=== PATIENT | male | born 1940 | race Caucasian/White ===

== ENCOUNTER 2016-04-26 18:57 | Inpatient (IN) | payer MEDICARE, BC ==
[2016-04-26] MEDS ORDERED: HYDROmorphone 1 MG/ML Syringe IVPUSH ONE (19:57)
[2016-04-26] MEDS ORDERED: Ondansetron 4 MG/2 ML SDV IVPUSH ONE (19:57)
[2016-04-26] MEDS ORDERED: Sodium Chloride 0.9% 1,000 ML IV SCH ×2 (20:00→23:15)
[2016-04-26] MEDS ORDERED: Sodium Chloride 0.9% 10 ML Syringe FLUSH ONE (20:00)
[2016-04-26] MEDS ORDERED: Iopamidol 612 MG/ML 150 ML Bottle IV PRN (20:00)
[2016-04-26] MEDS ORDERED: HYDROmorphone 0.5 MG/0.5 ML Syringe IVPUSH ONE (22:05)
[2016-04-26] MEDS ORDERED: Lidocaine 2% Jelly 10 ML Urojet ONE (22:14)
[2016-04-26] MEDS ORDERED: Albuterol 0.083% 2.5 MG/3 ML Neb Soln NEB PRN (23:01)
[2016-04-26] MEDS ORDERED: Morphine 2 MG/ML Syringe IVPUSH PRN (23:01)
--- NOTE | 2016-04-26 23:02 | EDM.PDOC ---
ED HPI GI/ABDOMINAL - General Chief Complaint: Abdominal Pain Stated Complaint: ABDOMINAL PAIN Time Seen by Provider: 04/26/16 19:50 Source: Reports: Patient History Limitations: Reports: No limitations - History of Present Illness INITIAL COMMENTS - FREE TEXT/NARRATIVE: History of present illness: [68-year-old male presents complaining of a bowel obstruction. He has history of gastric bypass several years ago and has had about 3 or 4 episodes of small bowel obstruction since then. Twice he's been taken to the operating room for a resection of a portion of his small bowel. He's had no fevers he's had bilious vomiting this all started about 3:00.] Review of systems: As per history of present illness and below otherwise all systems reviewed and negative. Past medical history: As per history of present illness and as reviewed below otherwise noncontributory. Surgical history: As per history of present illness and as reviewed below otherwise noncontributory. Social history: No reported history of drug or alcohol abuse. Family history: As per history of present illness and as reviewed below otherwise noncontributory. Physical exam: HEENT: Atraumatic, normocephalic, pupils reactive, negative for conjunctival pallor or scleral icterus, mucous membranes moist, throat clear, neck supple, nontender, trachea midline. Lungs: Clear to auscultation, breath sounds equal bilaterally, chest nontender. Heart: S1S2, regular, negative for clicks, rubs, or JVD. Abdomen: His abdomen is distended with hyperactive bowel sounds Pelvis: Stable nontender. Genitourinary: Deferred. Rectal: Deferred. Extremities: Atraumatic, negative for cords or calf pain. Neurovascular unremarkable. Neuro: Awake, alert, oriented. Cranial nerves II through XII unremarkable. Cerebellum unremarkable. Motor and sensory unremarkable throughout. Exam nonfocal. Diagnostics: [CT is demonstrating a small bowel obstruction his white count is elevated his urinalysis appears to be suggestive of a UTI] Therapeutics: [] Impression: [Small bowel obstruction UTI ] Plan: [ The patient will be admitted] Definitive disposition and diagnosis as appropriate pending reevaluation and review of above. - Related Data Allergies/ADRs: Allergies Allergy/AdvReac Type Severity Reaction Status Date / Time No Known Allergies Allergy Verified 06/05/15 11:22 Home Meds: Home Meds Calcium Citrate/Vitamin D3 [Calcium Citrate - Vit D3 Tab] 1 each PO DAILY [History] FLUoxetine HCl [Fluoxetine] 20 mg PO DAILY 12/06/12 [History] Ferrous Sulfate [Iron] 325 mg PO BID 12/06/12 [History] Henry-3 Fatty Acids [Henry-3] 1,000 mg PO BID 12/06/12 [History] Omeprazole [Prilosec] 40 mg PO BID 12/06/12 [History] Tamsulosin [Flomax] 0.4 mg PO DAILY 12/06/12 [History] Cholecalciferol (Vitamin D3) [Vitamin D3] 1,000 unit PO DAILY 05/04/14 [History] Dutasteride [Avodart] 0.5 mg PO BEDTIME 05/04/14 [History] Multivitamin [Multi-Vitamin Daily] 1 tab PO DAILY 05/04/14 [History] Vitamin B Complex [B-100 Complex] 100 mg PO DAILY 05/10/14 [History] Magnesium Oxide 600 mg PO DAILY #30 tablet 05/20/14 [Rx] Cyanocobalamin (Vitamin B-12) [Vitamin B-12] 1,000 mcg PO DAILY 06/05/15 [ History] Minocycline HCl 04/26/16 [History] Omeprazole [Omeprazole] 04/26/16 [History] Past Medical History HEENT History: Reports: Cataract, Hard of hearing, Impaired vision Cardiovascular History: Reports: Aneurysm, Hypertension, Pacemaker Respiratory History: Reports: Asthma, Pneumonia, recurrent, Sleep apnea Gastrointestinal History: Reports: Bowel obstruction, Diverticulosis, Gastritis , GI bleed, Hemorrhoids, Hiatal hernia, Other (see below) Other Gastrointestinal History: hernia Genitourinary History: Reports: Prostate disorder, Renal calculus Musculoskeletal History: Reports: Back pain, chronic, Fracture, Osteoarthritis Neurological History: Reports: Concussion, Vertigo Other Neuro History: syncope Psychiatric History: Reports: Anxiety, Depression Endocrine/Metabolic History: Reports: Vitamin D deficiency Hematologic History: Reports: Anemia, B12 deficiency, Blood transfusion(s), Iron deficiency Dermatologic History: Reports: Other (see below) Other Dermatologic History: rosecea - Infectious Disease History Other Infectious Disease History: pt cant remember - Past Surgical History HEENT Surgical History: Reports: Oral surgery Cardiovascular Surgical History: Reports: Pacer GI Surgical History: Reports: Appendectomy, Bariatric procedure, Colonoscopy, Hernia repair/other, Small bowel Other GI Surgeries/Procedures: hiatal hernia repair Male Surgical History: Reports: TURP-Transurethral resection of prostate Social & Family History - Family History Cardiac: Reports: Hypertension, [place] Musculoskeletal: Reports: Arthritis, Fibromyalgia Psychiatric: Reports: Anxiety, Depression Dermatologic: Reports: Other (see below) Other Dermatologic Family History: rosacea Oncologic: Reports: Bone, Liver, Metastatic, Skin - Tobacco Use Smoking Status *Q: Never Smoker Years of Tobacco use: 35 Packs/Tins Daily: 3 Used Tobacco, but Quit: Yes Month Tobacco Last Used: 27 yrs ago Second Hand Smoke Exposure: No - Alcohol Use Days Per Week of Alcohol Use: 4 Number of Drinks Per Day: 3 Total Drinks Per Week: 12 - Recreational Drug Use Recreational Drug Use: No ED ROS GENERAL - Review of Systems Review Of Systems: ROS reveals no pertinent complaints other than HPI. ED EXAM, GI/ABD - Physical Exam Exam: See Below Course - Vital Signs Last Recorded V/S: Last Vital Signs Temp 36.3 C 04/26/16 19:35 Pulse 69 04/26/16 21:35 Resp 16 04/26/16 21:35 BP 129/83 04/26/16 21:35 Pulse Ox 94 L 04/26/16 21:35 - Orders/Labs/Meds Orders: Active Orders 24 hr Category Date Time Status Abdomen Pelvis wo Cont [CT] Stat Exams 04/26/16 19:55 Taken Sodium Chloride 0.9% [Normal Saline] 1,000 ml Med 04/26/16 20:00 Active IV ASDIRECTED Medication Orders Sodium Chloride (Normal Saline) 1,000 mls @ 150 mls/hr IV ASDIRECTED DENISSE Last Admin: 04/26/16 20:27 Dose: 150 mls/hr Labs: Laboratory Tests 04/26/16 04/26/16 04/26/16 Range/Units 20:13 20:13 20:13 WBC 15.0 H (4.5-11.0) K/uL RBC 4.87 (4.30-5.90) M/uL Hgb 15.1 H D (12.0-15.0) g/dL Hct 44.1 (40.0-54.0) % MCV 91 (80-98) fL MCH 31 (27-31) pg MCHC 34 (32-36) % Plt Count 256 (150-400) K/uL Neut % (Auto) 75 H (36-66) % Lymph % (Auto) 17 L (24-44) % Story % (Auto) 7 H (2-6) % Eos % (Auto) 1 L (2-4) % Baso % (Auto) 1 (0-1) % Sodium 141 (140-148) mmol/L Potassium 4.6 (3.6-5.2) mmol/L Chloride 104 (100-108) mmol/L Carbon Dioxide 26 (21-32) mmol/L Anion Gap 11.4 (5.0-14.0) mmol/L BUN 25 H D (7-18) mg/dL Creatinine 1.4 H (0.8-1.3) mg/dL Est Cr Clr Drug Dosing 37.83 mL/min Estimated GFR (MDRD) 49 L (>60) Glucose 131 H (74-106) mg/dL Lactic Acid 1.7 (0.4-2.0) mmol/L Calcium 9.2 (8.5-10.1) mg/dL Total Bilirubin 0.3 (0.2-1.0) mg/dL AST 28 (15-37) U/L ALT 29 (12-78) U/L Alkaline Phosphatase 93 (46-116) U/L C-Reactive Protein 0.03 (0.0-0.3) mg/dL Total Protein 7.7 (6.4-8.2) g/dL Albumin 4.0 (3.4-5.0) g/dL Globulin 3.7 H (2.3-3.5) g/dL Albumin/Globulin Ratio 1.1 L (1.2-2.2) Lipase (73-393) U/L Urine Color Urine Appearance Urine pH (4.5-8.0) Ur Specific Sherman (1.008-1.030) Urine Protein (NEGATIVE) mg/dL Urine Glucose (UA) (NEGATIVE) mg/dL Urine Ketones (NEGATIVE) mg/dL Urine Occult Blood (NEGATIVE) Urine Nitrite (NEGAITVE) Urine Bilirubin (NEGATIVE) Urine Urobilinogen (NORMAL) mg/dL Ur Leukocyte Esterase (NEGATIVE) Urine RBC (0-5) Urine WBC (0-5) Ur Epithelial Cells Amorphous Sediment Urine Bacteria Urine Mucus 02/26/17 02/26/17 Range/Units 20:13 22:25 WBC (4.5-11.0) K/uL RBC (4.30-5.90) M/uL Hgb (12.0-15.0) g/dL Hct (40.0-54.0) % MCV (80-98) fL MCH (27-31) pg MCHC (32-36) % Plt Count (150-400) K/uL Neut % (Auto) (36-66) % Lymph % (Auto) (24-44) % Story % (Auto) (2-6) % Eos % (Auto) (2-4) % Baso % (Auto) (0-1) % Sodium (140-148) mmol/L Potassium (3.6-5.2) mmol/L Chloride (100-108) mmol/L Carbon Dioxide (21-32) mmol/L Anion Gap (5.0-14.0) mmol/L BUN (7-18) mg/dL Creatinine (0.8-1.3) mg/dL Est Cr Clr Drug Dosing mL/min Estimated GFR (MDRD) (>60) Glucose (74-106) mg/dL Lactic Acid (0.4-2.0) mmol/L Calcium (8.5-10.1) mg/dL Total Bilirubin (0.2-1.0) mg/dL AST (15-37) U/L ALT (12-78) U/L Alkaline Phosphatase (46-116) U/L C-Reactive Protein (0.0-0.3) mg/dL Total Protein (6.4-8.2) g/dL Albumin (3.4-5.0) g/dL Globulin (2.3-3.5) g/dL Albumin/Globulin Ratio (1.2-2.2) Lipase 180 (73-393) U/L Urine Color Yellow Urine Appearance Cloudy Urine pH 6.0 (4.5-8.0) Ur Specific Sherman 1.020 (1.008-1.030) Urine Protein Negative (NEGATIVE) mg/dL Urine Glucose (UA) Normal (NEGATIVE) mg/dL Urine Ketones Negative (NEGATIVE) mg/dL Urine Occult Blood Moderate (NEGATIVE) Urine Nitrite Negative (NEGAITVE) Urine Bilirubin Negative (NEGATIVE) Urine Urobilinogen Normal (NORMAL) mg/dL Ur Leukocyte Esterase Moderate (NEGATIVE) Urine RBC 5-10 H (0-5) Urine WBC 50-75 H (0-5) Ur Epithelial Cells Few Amorphous Sediment Urine Bacteria Many Urine Mucus Not seen Meds: Medications Generic Name Dose Route Start Last Admin Trade Name Karen PRN Reason Stop Dose Admin Sodium Chloride 1,000 mls @ 150 mls/hr 04/26/16 20:00 04/26/16 20:27 Normal Saline IV 150 mls/hr ASDIRECTED DENISSE Administration Discontinued Medications Generic Name Dose Route Start Last Admin Trade Name Karen PRN Reason Stop Dose Admin Hydromorphone HCl 1 mg 04/26/16 19:57 04/26/16 20:26 Dilaudid IVPUSH 04/26/16 19:58 1 mg ONETIME ONE Administration Hydromorphone HCl 0.5 mg 04/26/16 22:05 04/26/16 22:26 Dilaudid IVPUSH 04/26/16 22:06 0.5 mg ONETIME ONE Administration Sodium Chloride 74 mls @ 3.4 mls/sec 04/26/16 20:00 Normal Saline IV ASDIRECTED [facility] Iopamidol 112 ml 04/26/16 20:00 Isovue-300 (61%) IV 04/27/16 20:01 . DIRECTED PRN RADIOLOGY EXAM Lidocaine HCl Confirm 04/26/16 22:14 04/26/16 22:27 Xylocaine 2% Jelly Administered 04/26/16 22:15 10 ml Dose Administration 10 ml .ROUTE .STK-MED ONE Ondansetron HCl 4 mg 04/26/16 19:57 04/26/16 20:26 Zofran IVPUSH 04/26/16 19:58 4 mg ONETIME ONE Administration Sodium Chloride 10 ml 04/26/16 20:00 04/26/16 20:27 Saline Flush FLUSH 04/26/16 20:01 10 ml ONETIME ONE Administration Departure - Departure Time of Disposition: 23:00 Disposition: Admitted As Inpatient 64 Condition: fair Clinical Impression: Small bowel obstruction UTI (urinary tract infection) Qualifiers: Urinary tract infection type: acute cystitis Hematuria presence: without hematuria Qualified Code(s): N30.00 - Acute cystitis without hematuria Forms: ED Department Discharge - My Orders Last 24 Hours: My Active Orders 04/26/16 19:55 Abdomen Pelvis wo Cont [CT] Stat 02/26/17 20:00 Sodium Chloride 0.9% [Normal Saline] 1,000 ml IV ASDIRECTED - Assessment/Plan Last 24 Hours: My Active Orders 04/26/16 19:55 Abdomen Pelvis wo Cont [CT] Stat 04/26/16 20:00 Sodium Chloride 0.9% [Normal Saline] 1,000 ml IV ASDIRECTED
--- NOTE | 2016-04-26 23:24 | PCM.HP ---
H&P History of Present Illness - General Date of Service: 04/26/16 Admit Problem/Dx: Admission Diagnosis/Problem Admission Diagnosis/Problem Small bowel obstruction Source of Information: Patient, EMS, EMS notes reviewed History Limitations: Reports: No limitations - History of Present Illness Initial Comments - Free Text/Narative: 76-year-old male with past medical history of hypertension, hyperlipidemia, chronic bronchitis, previous smoker, status post bariatric surgery, recurrent intestinal obstruction, prostatic hypertrophy, recurrent UTI came to the ED with the complaining of nausea, vomiting, intermittent diarrheal episode associated with abdominal pain which started since 3 PM. Patient states that the abdominal pain initially was 7-8/10 intensity. He states that he is not passing gas. Patient had gastric bypass surgery 4 years ago and had n2 intestinal obstructions within the last 3 years. Patient denies any recent fever, recent sick contacts. Patient denies any cough, congestion, chest pains , breathing difficulty, leg edema, orthopnea and PND. Patient states that he had pacemaker surgery one year ago with concerns of abnormal rhythm. Last follow-up appointment with cardiology was one year ago. Patient TSH was in 2010 was within normal limits. Patient denies any change in the color of skin, blood in the stool, blood in the vomiting. In the ED patient had initial workup with CT of the abdomen without contrast with the concerns of creatinine 1.4 showed intestinal obstruction and unable to the transition point. Patient was placed on NG suction and IV fluids. Patient is a full code. Other review of systems are not significant - Related Data Allergies/Adverse Reactions: Allergies Allergy/AdvReac Type Severity Reaction Status Date / Time No Known Allergies Allergy Verified 06/05/15 11:22 Home Medications: Home Meds Calcium Citrate/Vitamin D3 [Calcium Citrate - Vit D3 Tab] 1 each PO DAILY [History] FLUoxetine HCl [Fluoxetine] 20 mg PO DAILY 12/06/12 [History] Ferrous Sulfate [Iron] 325 mg PO BID 12/06/12 [History] [place]-3 Fatty Acids [[place]-3] 1,000 mg PO BID 12/06/12 [History] Omeprazole [Prilosec] 40 mg PO BID 12/06/12 [History] Tamsulosin [Flomax] 0.4 mg PO DAILY 12/06/12 [History] Cholecalciferol (Vitamin D3) [Vitamin D3] 1,000 unit PO DAILY 05/04/14 [History] Dutasteride [Avodart] 0.5 mg PO BEDTIME 05/04/14 [History] Multivitamin [Multi-Vitamin Daily] 1 tab PO DAILY 05/04/14 [History] Vitamin B Complex [B-100 Complex] 100 mg PO DAILY 05/10/14 [History] Magnesium Oxide 600 mg PO DAILY #30 tablet 05/20/14 [Rx] Cyanocobalamin (Vitamin B-12) [Vitamin B-12] 1,000 mcg PO DAILY 06/05/15 [ History] Minocycline HCl 1 tab PO DAILY 04/26/16 [History] Omeprazole [Omeprazole] 1 tab PO DAILY 04/26/16 [History] Past Medical History HEENT History: Reports: Cataract, Hard of hearing, Impaired vision Cardiovascular History: Reports: Aneurysm, Hypertension, Pacemaker Respiratory History: Reports: Asthma, Pneumonia, recurrent, Sleep apnea Gastrointestinal History: Reports: Bowel obstruction, Diverticulosis, Gastritis , GI bleed, Hemorrhoids, Hiatal hernia, Other (see below) Other Gastrointestinal History: hernia Genitourinary History: Reports: Prostate disorder, Renal calculus Musculoskeletal History: Reports: Back pain, chronic, Fracture, Osteoarthritis Neurological History: Reports: Concussion, Vertigo Other Neuro History: syncope Psychiatric History: Reports: Anxiety, Depression Endocrine/Metabolic History: Reports: Vitamin D deficiency Hematologic History: Reports: Anemia, B12 deficiency, Blood transfusion(s), Iron deficiency Dermatologic History: Reports: Other (see below) Other Dermatologic History: rosecea - Infectious Disease History Other Infectious Disease History: pt cant remember - Past Surgical History HEENT Surgical History: Reports: Oral surgery Cardiovascular Surgical History: Reports: Pacer GI Surgical History: Reports: Appendectomy, Bariatric procedure, Colonoscopy, Hernia repair/other, Small bowel Other GI Surgeries/Procedures: hiatal hernia repair Male Surgical History: Reports: TURP-Transurethral resection of prostate Social & Family History - Family History Cardiac: Reports: Hypertension, [place] Musculoskeletal: Reports: Arthritis, Fibromyalgia Psychiatric: Reports: Anxiety, Depression Dermatologic: Reports: Other (see below) Other Dermatologic Family History: rosacea Oncologic: Reports: Bone, Liver, Metastatic, Skin - Tobacco Use Smoking Status *Q: Never Smoker Years of Tobacco use: 35 Packs/Tins Daily: 3 Used Tobacco, but Quit: Yes Month Tobacco Last Used: 27 yrs ago Second Hand Smoke Exposure: No - Alcohol Use Days Per Week of Alcohol Use: 4 Number of Drinks Per Day: 3 Total Drinks Per Week: 12 - Recreational Drug Use Recreational Drug Use: No H&P Review of Systems - Review of Systems: Review Of Systems: See Below General: Denies: fever, chills, malaise, weakness Pulmonary: Denies: shortness of breath, wheezing, pleuritic chest pain Cardiovascular: Denies: chest pain, palpitations, dyspnea on exertion, orthopnea , PND, edema, lightheadedness, syncope, claudication Gastrointestinal: Reports: Abdominal pain, Diarrhea, Distension. Denies: Anorexia, Black stool, Bloody stool, Constipation, Decreased appetite, Difficulty swallowing, Flatus Genitourinary: Denies: dysuria, frequency, burning Musculoskeletal: Denies: neck pain, shoulder pain Skin: Denies: cyanosis, jaundice Psychiatric: Denies: confusion, depression Neurological: Denies: confusion, dizziness, headache Hematologic/Lymphatic: Denies: anemia, easy bleeding Exam - Exam Exam: See Below - Vital Signs Vital Signs: Last Vital Signs Temp 36.3 C 04/26/16 19:35 Pulse 69 04/26/16 21:35 Resp 16 04/26/16 21:35 BP 129/83 04/26/16 21:35 Pulse Ox 94 L 04/26/16 21:35 Weight: 75.6 kg - Exam General: alert, oriented Neck: supple, trachea midline Lungs: Clear to auscultation, Normal respiratory effort Cardiovascular: regular rate, regular rhythm Abdomen: soft, distention, hyperactive bowel sounds. No: peritoneal signs, guarding, rigidity, rebound, tenderness, hepatomegaly, splenomegaly (Male) Exam: No: No hernia Extremities: normal inspection, normal pulses Skin: warm, dry, intact Neuro Extensive - Mental Status: alert, oriented x3 - Patient Data Lab Results last 24 hrs: Laboratory Results - last 24 hr 04/26/16 04/26/16 04/26/16 Range/Units 20:13 20:13 20:13 WBC 15.0 H (4.5-11.0) K/uL RBC 4.87 (4.30-5.90) M/uL Hgb 15.1 H D (12.0-15.0) g/dL Hct 44.1 (40.0-54.0) % MCV 91 (80-98) fL MCH 31 (27-31) pg MCHC 34 (32-36) % Plt Count 256 (150-400) K/uL Neut % (Auto) 75 H (36-66) % Lymph % (Auto) 17 L (24-44) % [place] % (Auto) 7 H (2-6) % Eos % (Auto) 1 L (2-4) % Baso % (Auto) 1 (0-1) % Sodium 141 (140-148) mmol/L Potassium 4.6 (3.6-5.2) mmol/L Chloride 104 (100-108) mmol/L Carbon Dioxide 26 (21-32) mmol/L Anion Gap 11.4 (5.0-14.0) mmol/L BUN 25 H D (7-18) mg/dL Creatinine 1.4 H (0.8-1.3) mg/dL Est Cr Clr Drug Dosing 37.83 mL/min Estimated GFR (MDRD) 49 L (>60) Glucose 131 H (74-106) mg/dL Lactic Acid 1.7 (0.4-2.0) mmol/L Calcium 9.2 (8.5-10.1) mg/dL Total Bilirubin 0.3 (0.2-1.0) mg/dL AST 28 (15-37) U/L ALT 29 (12-78) U/L Alkaline Phosphatase 93 (46-116) U/L C-Reactive Protein 0.03 (0.0-0.3) mg/dL Total Protein 7.7 (6.4-8.2) g/dL Albumin 4.0 (3.4-5.0) g/dL Globulin 3.7 H (2.3-3.5) g/dL Albumin/Globulin Ratio 1.1 L (1.2-2.2) Lipase (73-393) U/L Urine Color Urine Appearance Urine pH (4.5-8.0) Ur Specific [place] (1.008-1.030) Urine Protein (NEGATIVE) mg/dL Urine Glucose (UA) (NEGATIVE) mg/dL Urine Ketones (NEGATIVE) mg/dL Urine Occult Blood (NEGATIVE) Urine Nitrite (NEGAITVE) Urine Bilirubin (NEGATIVE) Urine Urobilinogen (NORMAL) mg/dL Ur Leukocyte Esterase (NEGATIVE) Urine RBC (0-5) Urine WBC (0-5) Ur Epithelial Cells Amorphous Sediment Urine Bacteria Urine Mucus 04/26/16 04/26/16 Range/Units 20:13 22:25 WBC (4.5-11.0) K/uL RBC (4.30-5.90) M/uL Hgb (12.0-15.0) g/dL Hct (40.0-54.0) % MCV (80-98) fL MCH (27-31) pg MCHC (32-36) % Plt Count (150-400) K/uL Neut % (Auto) (36-66) % Lymph % (Auto) (24-44) % [place] % (Auto) (2-6) % Eos % (Auto) (2-4) % Baso % (Auto) (0-1) % Sodium (140-148) mmol/L Potassium (3.6-5.2) mmol/L Chloride (100-108) mmol/L Carbon Dioxide (21-32) mmol/L Anion Gap (5.0-14.0) mmol/L BUN (7-18) mg/dL Creatinine (0.8-1.3) mg/dL Est Cr Clr Drug Dosing mL/min Estimated GFR (MDRD) (>60) Glucose (74-106) mg/dL Lactic Acid (0.4-2.0) mmol/L Calcium (8.5-10.1) mg/dL Total Bilirubin (0.2-1.0) mg/dL AST (15-37) U/L ALT (12-78) U/L Alkaline Phosphatase (46-116) U/L C-Reactive Protein (0.0-0.3) mg/dL Total Protein (6.4-8.2) g/dL Albumin (3.4-5.0) g/dL Globulin (2.3-3.5) g/dL Albumin/Globulin Ratio (1.2-2.2) Lipase 180 (73-393) U/L Urine Color Yellow Urine Appearance Cloudy Urine pH 6.0 (4.5-8.0) Ur Specific [place] 1.020 (1.008-1.030) Urine Protein Negative (NEGATIVE) mg/dL Urine Glucose (UA) Normal (NEGATIVE) mg/dL Urine Ketones Negative (NEGATIVE) mg/dL Urine Occult Blood Moderate (NEGATIVE) Urine Nitrite Negative (NEGAITVE) Urine Bilirubin Negative (NEGATIVE) Urine Urobilinogen Normal (NORMAL) mg/dL Ur Leukocyte Esterase Moderate (NEGATIVE) Urine RBC 5-10 H (0-5) Urine WBC 50-75 H (0-5) Ur Epithelial Cells Few Amorphous Sediment Urine Bacteria Many Urine Mucus Not seen Result Diagrams: 04/27/16 04:30 04/27/16 04:30 *Q Meaningful Use (ADM) - VTE *Q VTE Criteria *Q: - Stroke *Q Stroke Criteria *Q: - AMI *Q AMI Criteria *Q: - Problem List (1) Small bowel obstruction SNOMED Code(s): 633407254 ICD Code: K56.69 - OTHER INTESTINAL OBSTRUCTION Status: Acute Priority: High Current Visit: Yes (2) UTI (urinary tract infection) SNOMED Code(s): 03226796 ICD Code: N39.0 - URINARY TRACT INFECTION, SITE NOT SPECIFIED Status: Acute Current Visit: Yes Qualifiers: Urinary tract infection type: acute cystitis Hematuria presence: without hematuria Qualified Code(s): N30.00 - Acute cystitis without hematuria (3) Abdominal pain SNOMED Code(s): 69156582 ICD Code: R10.9 - UNSPECIFIED ABDOMINAL PAIN Status: Resolved Current Visit: No Qualifiers: Abdominal location: generalized Qualified Code(s): R10.84 - Generalized abdominal pain (4) Pacemaker SNOMED Code(s): 240165427, 849068453 ICD Code: Z95.0 - PRESENCE OF CARDIAC PACEMAKER Status: Chronic Current Visit: No (5) Hypertension SNOMED Code(s): 09613250 ICD Code: I10 - ESSENTIAL (PRIMARY) HYPERTENSION Status: Acute Current Visit: Yes (6) Hyperlipemia SNOMED Code(s): 78415526 ICD Code: E78.5 - HYPERLIPIDEMIA, UNSPECIFIED Status: Chronic Current Visit: No (7) Depression SNOMED Code(s): 81760885 ICD Code: F32.9 - MAJOR DEPRESSIVE DISORDER, SINGLE EPISODE, UNSPECIFIED Status: Acute Current Visit: Yes (8) GERD (gastroesophageal reflux disease) SNOMED Code(s): 354658115 ICD Code: K21.9 - GASTRO-ESOPHAGEAL REFLUX DISEASE WITHOUT ESOPHAGITIS Status: Chronic Current Visit: No (9) Chronic bronchitis SNOMED Code(s): 52123332 ICD Code: J42 - UNSPECIFIED CHRONIC BRONCHITIS Status: Chronic Current Visit: No (10) Bariatric surgery status SNOMED Code(s): 695027913, 794156833 ICD Code: Z98.84 - BARIATRIC SURGERY STATUS Status: Chronic Current Visit : No (11) Recurrent intestinal obstruction SNOMED Code(s): 63901684 ICD Code: K56.60 - UNSPECIFIED INTESTINAL OBSTRUCTION Status: Acute Current Visit: Yes (12) Hypomagnesemia SNOMED Code(s): 053510908 ICD Code: E83.42 - HYPOMAGNESEMIA Status: Acute Current Visit: Yes (13) Iron deficiency anemia SNOMED Code(s): 03472448 ICD Code: D50.9 - IRON DEFICIENCY ANEMIA, UNSPECIFIED Status: Acute Current Visit: Yes Problem List Initiated/Reviewed/Updated: Yes Orders Last 24hrs: Active Orders 24 hr Category Date Time Status Patient Status [ADT] Routine ADT 04/26/16 23:01 Ordered Bedrest Bathroom Privileges [RC] ASDIRECTED Care 04/26/16 23:01 Ordered Intake and Output [RC] QSHIFT Care 04/26/16 23:04 Ordered Lab Instructions for Nurse [RC] Click to Edit Care 04/26/16 23:11 Ordered Notify Provider Consults [RC] ASDIRECTED Care 04/26/16 23:08 Ordered Oxygen Therapy [RC] PRN Care 04/26/16 23:01 Ordered Pulse Oximetry [RC] PRN Care 04/26/16 23:04 Ordered RT Aerosol Therapy [RC] ASDIRECTED Care 04/26/16 23:08 Ordered VTE/DVT Education [RC] Per Unit Routine Care 04/26/16 23:01 Ordered Vital Signs [RC] Q4H Care 04/26/16 23:01 Ordered Consult to Physician [CONS] Routine Cons 04/26/16 23:01 Ordered Nothing per Oral Now Diet [DIET] Diet 04/26/16 Breakfast Ordered Abdomen Pelvis wo Cont [CT] Stat Exams 04/26/16 19:55 Taken Albuterol [Proventil Neb Soln] Med 04/26/16 23:01 Ordered 2.5 mg NEB Q4H PRN Ciprofloxacin in D5W [Cipro in D5W 400 MG/200 ML] 400 Med 04/26/16 23:30 Ordered mg Premix Bag 1 bag IV Q24H Morphine Med 04/26/16 23:01 Ordered 2 mg IVPUSH Q4H PRN Pantoprazole [Protonix IV] Med 04/26/16 23:15 Ordered 40 mg IV Q24H Sodium Chloride 0.9% @ 125 MLS/HR (1000ml) Med 04/26/16 23:15 Ordered Sodium Chloride 0.9% [Normal Saline] 1,000 ml IV ASDIRECTED Sodium Chloride 0.9% [Normal Saline] 1,000 ml Med 04/26/16 20:00 Active IV ASDIRECTED Resuscitation Status Routine Resus Stat 04/26/16 23:01 Ordered Medication Orders Albuterol (Proventil Neb Soln) 2.5 mg NEB Q4H PRN PRN Reason: Shortness Of Breath/wheezing Sodium Chloride (Normal Saline) 1,000 mls @ 150 mls/hr IV ASDIRECTED DENISSE Last Admin: 04/26/16 20:27 Dose: 150 mls/hr Sodium Chloride (Normal Saline) 1,000 mls @ 125 mls/hr IV ASDIRECTED DENISSE Morphine Sulfate (Morphine) 2 mg IVPUSH Q4H PRN PRN Reason: Pain (severe 7-10) Pantoprazole Sodium (Protonix Iv) 40 mg IV Q24H DENISSE Assessment/Plan Comment:: 76-year-old male with past medical history of hypertension, hyperlipidemia, chronic bronchitis, previous smoker, status post bariatric surgery, recurrent intestinal obstruction, prostatic hypertrophy, recurrent UTI came to the ED with the complaining of abdominal pain. CT abdomen showed small bowel obstruction. Admitted into inpatient and on medical management. (1) Small bowel obstruction (11) Recurrent intestinal obstruction (3) Abdominal pain (10) Bariatric surgery status surgery is on board and on Medical management. NG suction. Nothing by mouth. IV fluids maintenance, Pantop 40 mg IV. Morphine 2 mg every 4 hourly as needed for pain. Daily labs. We'll see his progress will follow surgery recommendations (2) UTI (urinary tract infection) asymptomatic, pyuria. We will add ciprofloxacin 400 mg every 24 hourly. Will follow culture report (4) Pacemaker asymptomatic, stable. We will monitor (12) Hypomagnesemia (13) Iron deficiency anemia (8) GERD (gastroesophageal reflux disease) continuing home medications (5) Hypertension continue home medications (6) Hyperlipemia continue home medications (7) Depression ontinue home medications (9) Chronic bronchitis added albuterol as needed. Maintaining saturation on room air GI prophylaxis-Pantoprazole 40 mg IV daily Diet - nothing by mouth CODE STATUS - full code Activity - bedrest DVT prophylaxis - Mechanical
[2016-04-26] MEDS ORDERED: Ciprofloxacin in D5W 400 MG in Premix Bag 1 BAG IV SCH ×2 (23:30)
[2016-04-26] MEDS ORDERED: Ondansetron 4 MG/2 ML SDV IVPUSH PRN (23:33)
[2016-04-27] MEDS: Pantoprazole 40 MG Vial IV SCH
[2016-04-27] MEDS ORDERED: Phenol/Sodium Phenolate Mouthwash 180 ML Bottle MUCMEM PRN (02:07)
[2016-04-27] MEDS: Ciprofloxacin in D5W 400 MG in Premix Bag 1 BAG IV SCH ×2 (12:13)
[2016-04-27] MEDS ORDERED: D5 1/2 NS w/ 20 mEq/L KCl 1,000 ML IV SCH (14:30)
--- NOTE | 2016-04-27 15:02 | PCM.PN ---
- General Info Date of Service: 04/27/16 Functional Status: Reports: pain controlled, ambulating - Review of Systems Gastrointestinal: Reports: Abdominal pain (mild), Flatus Systems Review Comment:: no acute events since admission.minimal right lower quadrant abdominal pain. No nausea or vomiting. He is passing gas but has not had a bowel movement. No shortness of breath. - Patient Data Vitals - most recent: Last Vital Signs Temp 36.5 C 04/27/16 10:51 Pulse 76 04/27/16 10:51 Resp 12 04/27/16 10:51 BP 110/58 L 04/27/16 10:51 Pulse Ox 97 04/27/16 10:51 Weight - most recent: 75.6 kg I&O - last 24 hours: Intake & Output 04/27/16 04/27/16 04/27/16 06:59 14:59 22:59 Intake Total 703 Output Total 800 275 Balance -97 -275 Lab Results last 24 hrs: Laboratory Results - last 24 hr 04/26/16 04/27/16 04/27/16 Range/Units 23:27 04:30 04:30 WBC 11.3 H (4.5-11.0) K/uL RBC 4.31 (4.30-5.90) M/uL Hgb 13.3 (12.0-15.0) g/dL Hct 40.1 (40.0-54.0) % MCV 93 (80-98) fL MCH 31 (27-31) pg MCHC 33 (32-36) % Plt Count 203 (150-400) K/uL Sodium 143 (140-148) mmol/L Potassium 4.4 (3.6-5.2) mmol/L Chloride 108 (100-108) mmol/L Carbon Dioxide 26 (21-32) mmol/L Anion Gap 9.0 (5.0-14.0) mmol/L BUN 23 H (7-18) mg/dL Creatinine 1.2 (0.8-1.3) mg/dL Est Cr Clr Drug Dosing 44.13 mL/min Estimated GFR (MDRD) 59 L (>60) Glucose 107 H (74-106) mg/dL Calcium 8.2 L (8.5-10.1) mg/dL Magnesium 1.8 1.7 L (1.8-2.4) mg/dL Total Bilirubin 0.4 (0.2-1.0) mg/dL AST 22 (15-37) U/L ALT 23 (12-78) U/L Alkaline Phosphatase 72 (46-116) U/L Total Protein 6.2 L (6.4-8.2) g/dL Albumin 3.1 L (3.4-5.0) g/dL Globulin 3.1 (2.3-3.5) g/dL Albumin/Globulin Ratio 1.0 L (1.2-2.2) Med Orders - Current: Current Medications Albuterol (Proventil Neb Soln) 2.5 mg NEB Q4H PRN PRN Reason: Shortness Of Breath/wheezing Dutasteride (Avodart) 0.5 mg PO BEDTIME [facility] Fluoxetine HCl (Prozac) 20 mg PO DAILY [facility] Ciprofloxacin/Dextrose 400 mg/ (Premix) 200 mls @ 200 mls/hr IV Q12H [facility] Last Admin: 04/27/16 12:13 Dose: 200 mls/hr Potassium Chloride/Dextrose/Sod Cl (D5 1/2 Ns W/ 20 Meq/L Kcl) 1,000 mls @ 50 mls/hr IV ASDIRECTED [facility] Magnesium Sulfate 2 gm/ Premix 50 mls @ 25 mls/hr IV Q6H [facility] Stop: 04/29/16 11:59 Morphine Sulfate (Morphine) 2 mg IVPUSH Q4H PRN PRN Reason: Pain (severe 7-10) Last Admin: 04/27/16 02:15 Dose: 2 mg Ondansetron HCl (Zofran) 4 mg IVPUSH Q4H PRN PRN Reason: Nausea/Vomiting Pantoprazole Sodium (Protonix Iv) 40 mg IV Q24H [facility] Last Admin: 04/27/16 00:00 Dose: 40 mg Phenol (Phenaseptic Liquid) 0 ml MUCMEM ASDIRECTED PRN PRN Reason: Sore Throat Last Admin: 04/27/16 02:15 Dose: 1 spray Tamsulosin HCl (Flomax) 0.4 mg PO BEDTIME [facility] Discontinued Medications Hydromorphone HCl (Dilaudid) 1 mg IVPUSH ONETIME ONE Stop: 04/26/16 19:58 Last Admin: 04/26/16 20:26 Dose: 1 mg Hydromorphone HCl (Dilaudid) 0.5 mg IVPUSH ONETIME ONE Stop: 04/26/16 22:06 Last Admin: 04/26/16 22:26 Dose: 0.5 mg Sodium Chloride (Normal Saline) 1,000 mls @ 150 mls/hr IV ASDIRECTED [facility] Last Admin: 04/26/16 20:27 Dose: 150 mls/hr Sodium Chloride (Normal Saline) 74 mls @ 3.4 mls/sec IV ASDIRECTED [facility] Sodium Chloride (Normal Saline) 1,000 mls @ 125 mls/hr IV ASDIRECTED [facility] Last Admin: 04/27/16 01:52 Dose: 125 mls/hr Ciprofloxacin/Dextrose 400 mg/ (Premix) 200 mls @ 200 mls/hr IV Q24H [facility] Last Admin: 04/27/16 00:13 Dose: 200 mls/hr Iopamidol (Isovue-300 (61%)) 112 ml IV . DIRECTED PRN PRN Reason: RADIOLOGY EXAM Stop: 04/27/16 20:01 Lidocaine HCl (Xylocaine 2% Jelly) Confirm Administered Dose 10 ml .ROUTE .STK- MED ONE Stop: 04/26/16 22:15 Last Admin: 04/26/16 22:27 Dose: 10 ml Ondansetron HCl (Zofran) 4 mg IVPUSH ONETIME ONE Stop: 04/26/16 19:58 Last Admin: 04/26/16 20:26 Dose: 4 mg Sodium Chloride (Saline Flush) 10 ml FLUSH ONETIME ONE Stop: 04/26/16 20:01 Last Admin: 04/26/16 20:27 Dose: 10 ml - Exam General: alert, oriented, cooperative, no acute distress Neck: supple Lungs: Normal respiratory effort Abdomen: bowel sounds present, soft, no distension, tenderness (mild LLQ) Extremities: no edema Skin: warm, dry - Problem List Review Problem List Initiated/Reviewed/Updated: Yes - My Orders Last 24 Hours: My Active Orders 04/27/16 10:08 Discontinue Telemetry Monitoring [Cardiac Monitoring Discontinue] [RC] Click to Edit 04/27/16 12:00 Ciprofloxacin in D5W [Cipro in D5W 400 MG/200 ML] 400 mg Premix Bag 1 bag IV Q12H 04/27/16 14:59 Up ad Delicia [RC] ASDIRECTED 04/27/16 Dinner Clear Liquid Diet [DIET] - Plan Plan:: Assessment and Plan - Probable recurrent partial small bowel obstruction - doing well despite his NG tube coming out last night. Passing gas. Minimal pain and no nausea. ileus secondary to urinary tract infection could be considered. -Trial of clear liquids -Pain control Complicated urinary tract infection - patient reports recent treatment for UTI to treatment duration was only 3 days. Urine cultures pending. -Continue ciprofloxacin -Followup urine culture -Plan for 2 weeks of antibiotic therapy at the time of hospital discharge Maintenance issues - -GI prophylaxis - Pantoprazole 40 mg daily -Diet - clear liquids -Activity - up ad delicia -DVT prophylaxis - Mechanical Disposition - anticipate discharge home after the hospital stay Stewart Smith M.D.
[2016-04-27] MEDS: Magnesium Sulfate/Water 2 GM in Premix Bag 1 BAG IV SCH ×2 (16:14→22:02)
[2016-04-27] MEDS: FLUoxetine 20 MG Cap PO SCH (16:14)
[2016-04-27] MEDS ORDERED: Tamsulosin 0.4 MG Cap.ER PO SCH (21:00)
[2016-04-27] MEDS ORDERED: Dutasteride 0.5 MG Cap PO SCH (21:00)
[2016-04-28] MEDS: Pantoprazole 40 MG Vial IV SCH (00:33)
[2016-04-28] MEDS: Ciprofloxacin in D5W 400 MG in Premix Bag 1 BAG IV SCH ×2 (00:37)
[2016-04-28] MEDS ORDERED: Acetaminophen 325 MG Tab PO PRN (02:48)
[2016-04-28] MEDS: Magnesium Sulfate/Water 2 GM in Premix Bag 1 BAG IV SCH ×2 (03:43→09:58)
[2016-04-28] MEDS: FLUoxetine 20 MG Cap PO SCH (08:21)
--- NOTE | 2016-04-28 08:44 | CR ---
Abdomen 2V AP Flat Upright HISTORY: Follow-up small bowel obstruction. COMPARISON: CT scan 04/26/2016. Abdominal films 05/10/2015. FINDINGS: Scattered stool within the colon. No colonic obstruction. Surgical clips in the midabdomen . Calcification in the low pelvis compatible with bladder stone measuring 1.5 cm. Impression: Nonobstructive bowel gas pattern. The previously seen dilated loops of small bowel on CT scan [facility] [place] are less apparent on today's study.
[2016-04-28 10:56] VITALS: BP 128/78
[2016-04-28] MEDS ORDERED: Ciprofloxacin 500 MG Tab PO SCH (11:00)
[2016-04-28] MEDS ORDERED: Sodium Chloride 0.9% 1,000 ML IV SCH (13:45)
--- NOTE | 2016-04-28 13:46 | PCM.PN ---
- General Info Date of Service: 04/28/16 Functional Status: Reports: pain controlled, tolerating diet - Review of Systems General: Denies: fever, weakness Gastrointestinal: Reports: Flatus. Denies: Abdominal pain - Patient Data Vitals - most recent: Last Vital Signs Temp 36.6 C 04/28/16 10:52 Pulse 60 04/28/16 10:52 Resp 16 04/28/16 10:52 BP 128/78 04/28/16 10:52 Pulse Ox 93 L 04/28/16 10:52 Weight - most recent: 75.6 kg I&O - last 24 hours: Intake & Output 04/27/16 04/28/16 04/28/16 22:59 06:59 14:59 Intake Total 2340 690 650 Output Total 650 1300 950 Balance 1690 -610 -300 Lab Results last 24 hrs: Laboratory Results - last 24 hr 04/28/16 04/28/16 Range/Units 04:00 04:00 WBC 7.0 (4.5-11.0) K/uL RBC 4.21 L (4.30-5.90) M/uL Hgb 13.1 (12.0-15.0) g/dL Hct 39.2 L (40.0-54.0) % MCV 93 (80-98) fL MCH 31 (27-31) pg MCHC 33 (32-36) % Plt Count 188 (150-400) K/uL Neut % (Auto) 38 (36-66) % Lymph % (Auto) 49 H (24-44) % Wilson % (Auto) 8 H (2-6) % Eos % (Auto) 4 (2-4) % Baso % (Auto) 1 (0-1) % Sodium 140 (140-148) mmol/L Potassium 3.9 (3.6-5.2) mmol/L Chloride 105 (100-108) mmol/L Carbon Dioxide 27 (21-32) mmol/L Anion Gap 7.6 (5.0-14.0) mmol/L BUN 15 (7-18) mg/dL Creatinine 1.2 (0.8-1.3) mg/dL Est Cr Clr Drug Dosing 44.07 mL/min Estimated GFR (MDRD) 59 L (>60) Glucose 103 (74-106) mg/dL Calcium 8.0 L (8.5-10.1) mg/dL Phosphorus 3.0 (2.5-4.9) mg/dL Ferritin 315 (8-388) ng/ml Total Bilirubin 0.5 (0.2-1.0) mg/dL AST 20 (15-37) U/L ALT 21 (12-78) U/L Alkaline Phosphatase 66 (46-116) U/L Qjh-A-Sekagilpuwg Pept 428 (5-450) pg/mL Total Protein 6.0 L (6.4-8.2) g/dL Albumin 3.0 L (3.4-5.0) g/dL Globulin 3.0 (2.3-3.5) g/dL Albumin/Globulin Ratio 1.0 L (1.2-2.2) Med Orders - Current: Current Medications Acetaminophen (Tylenol) 650 mg PO Q4H PRN PRN Reason: Headache Last Admin: 04/28/16 03:12 Dose: 650 mg Albuterol (Proventil Neb Soln) 2.5 mg NEB Q4H PRN PRN Reason: Shortness Of Breath/wheezing Ciprofloxacin (Ciprofloxacin Hcl) 500 mg PO BID [facility] Last Admin: 04/28/16 11:20 Dose: 500 mg Dutasteride (Avodart) 0.5 mg PO BEDTIME [facility] Last Admin: 04/27/16 21:00 Dose: 0.5 mg Fluoxetine HCl (Prozac) 20 mg PO DAILY [facility] Last Admin: 04/28/16 08:21 Dose: 20 mg Magnesium Sulfate 2 gm/ Premix 50 mls @ 25 mls/hr IV Q6H [facility] Stop: 04/29/16 11:59 Last Admin: 04/28/16 09:58 Dose: 25 mls/hr Morphine Sulfate (Morphine) 2 mg IVPUSH Q4H PRN PRN Reason: Pain (severe 7-10) Last Admin: 04/27/16 02:15 Dose: 2 mg Ondansetron HCl (Zofran) 4 mg IVPUSH Q4H PRN PRN Reason: Nausea/Vomiting Pantoprazole Sodium (Protonix Iv) 40 mg IV Q24H [facility] Last Admin: 04/28/16 00:33 Dose: 40 mg Phenol (Phenaseptic Liquid) 0 ml MUCMEM ASDIRECTED PRN PRN Reason: Sore Throat Last Admin: 04/27/16 02:15 Dose: 1 spray Tamsulosin HCl (Flomax) 0.4 mg PO BEDTIME DENISSE Last Admin: 04/27/16 21:00 Dose: 0.4 mg Discontinued Medications Hydromorphone HCl (Dilaudid) 1 mg IVPUSH ONETIME ONE Stop: 04/26/16 19:58 Last Admin: 04/26/16 20:26 Dose: 1 mg Hydromorphone HCl (Dilaudid) 0.5 mg IVPUSH ONETIME ONE Stop: 04/26/16 22:06 Last Admin: 04/26/16 22:26 Dose: 0.5 mg Sodium Chloride (Normal Saline) 1,000 mls @ 150 mls/hr IV ASDIRECTED [facility] Last Admin: 04/26/16 20:27 Dose: 150 mls/hr Sodium Chloride (Normal Saline) 74 mls @ 3.4 mls/sec IV ASDIRECTED [facility] Sodium Chloride (Normal Saline) 1,000 mls @ 125 mls/hr IV ASDIRECTED [facility] Last Admin: 04/27/16 01:52 Dose: 125 mls/hr Ciprofloxacin/Dextrose 400 mg/ (Premix) 200 mls @ 200 mls/hr IV Q24H [facility] Last Admin: 04/27/16 00:13 Dose: 200 mls/hr Ciprofloxacin/Dextrose 400 mg/ (Premix) 200 mls @ 200 mls/hr IV Q12H [facility] Last Admin: 04/28/16 00:37 Dose: 200 mls/hr Potassium Chloride/Dextrose/Sod Cl (D5 1/2 Ns W/ 20 Meq/L Kcl) 1,000 mls @ 50 mls/hr IV ASDIRECTED [facility] Iopamidol (Isovue-300 (61%)) 112 ml IV . DIRECTED PRN PRN Reason: RADIOLOGY EXAM Stop: 04/27/16 20:01 Lidocaine HCl (Xylocaine 2% Jelly) Confirm Administered Dose 10 ml .ROUTE .STK- MED ONE Stop: 04/26/16 22:15 Last Admin: 04/26/16 22:27 Dose: 10 ml Ondansetron HCl (Zofran) 4 mg IVPUSH ONETIME ONE Stop: 04/26/16 19:58 Last Admin: 04/26/16 20:26 Dose: 4 mg Sodium Chloride (Saline Flush) 10 ml FLUSH ONETIME ONE Stop: 04/26/16 20:01 Last Admin: 04/26/16 20:27 Dose: 10 ml - Exam Quality Assessment: No: supplemental oxygen General: alert, oriented, cooperative, no acute distress Neck: supple Lungs: Normal respiratory effort Abdomen: bowel sounds present, soft, no tenderness, no distension Extremities: no edema Skin: warm, dry Psy/Mental Status: alert, normal affect - My Orders Last 24 Hours: My Active Orders 04/27/16 14:59 Up ad Delicia [RC] ASDIRECTED 04/28/16 10:49 Convert IV to Saline Lock [OM.PC] Routine 04/28/16 11:00 Ciprofloxacin [Ciprofloxacin HCl] 500 mg PO BID 04/28/16 13:45 Sodium Chloride 0.9% [Normal Saline] 1,000 ml IV ASDIRECTED 04/29/16 07:30 Pantoprazole [Protonix] 40 mg PO ACBREAKFAST - Plan Plan:: Assessment and Plan - Probable recurrent partial small bowel obstruction - doing well despite his NG tube coming out last night. Passing gas. Minimal pain and no nausea. ileus secondary to urinary tract infection could be considered. -Trial of clear liquids -Pain control Complicated urinary tract infection - patient reports recent treatment for UTI to treatment duration was only 3 days. Urine cultures pending. -Continue ciprofloxacin -Followup urine culture -Plan for 2 weeks of antibiotic therapy at the time of hospital discharge Maintenance issues - -GI prophylaxis - Pantoprazole 40 mg daily -Diet - clear liquids -Activity - up ad delicia -DVT prophylaxis - Mechanical Disposition - anticipate discharge home after the hospital stay Stewart Smith M.D.
--- NOTE | 2016-04-28 15:32 | PCM.DCSUM1 ---
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 He was admitted for management of a small bowel obstruction. - Discharge Data Discharge Date: 04/28/16 Discharge Disposition: Home, Self-Care 01 Condition: Good - Discharge Diagnosis/Problem(s) (1) Small bowel obstruction SNOMED Code(s): 191014541 ICD Code: K56.69 - OTHER INTESTINAL OBSTRUCTION Status: Acute Priority: High (2) Complicated UTI (urinary tract infection) SNOMED Code(s): 96164083 ICD Code: N39.0 - URINARY TRACT INFECTION, SITE NOT SPECIFIED Status: Acute - Patient Summary/Data Consults: Consultations 04/28/16 07:55 Consult to Dietary [Consult to Facility Maintenance Mechanic] [CONS] Routine Comment: Physician Instructions: Quantity: Reason for Consult: review full liq diet for 1 week, 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 He was started on antibiotics and admitted to the hospital after an NG tube was placed for decompression. several hours after admission his NG tube dislodged. Since he was feeling well at that time it was not immediately replaced. The morning after admission he is feeling much better with less abdominal distention and he is passing gas. at this point with minimal pain his diet was advanced to clear liquids which he tolerated well. He did not have additional bowel movements but continued to pass gas. On the morning of discharge he continues to pass gas but has not had a bowel movement. He is tolerating full liquids. Throughout the day he did end up having a large bowel movement with additional improvements in his abdominal status. He is requesting to go home this afternoon and I believe that he is safe for outpatient management at this time. He has not had any fevers with his urinary tract infection. He has been tolerating his full liquid diet well. Dr. Blank with general surgery did recommend continuing his full liquid diet for one week before transitioning to a low fiber and low residual diet for the remainder of his life very likely. Regarding his urinary tract infection his culture is growing a gram-positive cocci but this has not been identified yet. Because he is clinically improving with the ciprofloxacin we have elected to continue this for outpatient management. Given that this is a complicated urinary tract infection ( male patient with recent UTI) I have elected to treat him for a total of 2 weeks. I will contact him when culture results are available if we need to adjust her antibiotics. He will followup as needed if symptoms do not continue to improve or get worse. - Patient Instructions Diet: Full Liquid Diet (for one week), GI Soft/Low Residue/Low Fiber (for the rest of your life after the next week ) Activity: As Tolerated Driving: May Drive Today Showering/Bathing: May Shower Notify Provider of: Fever, Increased Pain, Nausea and/or Vomiting Other/Special Instructions: 1. You were in the hospital for management of a small bowel obstruction as well as a complicated urinary tract infection. The bowel obstruction is getting better with no need for surgical intervention. I do recommend 10 additional days of antibiotic therapy with ciprofloxacin for the urinary tract infection. I strongly recommend that you maintain good hydration to help avoid future infections. 2. Dr Blank has recommended that you maintain a full liquid diet for the next one week and then a low fiber and low residual diet for the rest of your life to help avoid future bowel obstructions. 3. Please seek medical attention if you develop fever greater than 101, worsening abdominal pain, severe diarrhea or nausea with vomiting. - Discharge Plan Prescriptions/Med Rec: Ciprofloxacin [Ciprofloxacin HCl] 500 mg PO BID #20 tablet Home Medications: Home Meds Calcium Citrate/Vitamin D3 [Calcium Citrate - Vit D3 Tab] 1 each PO DAILY [History] FLUoxetine HCl [Fluoxetine] 20 mg PO DAILY 12/06/12 [History] Ferrous Sulfate [Iron] 325 mg PO BID 12/06/12 [History] [place]-3 Fatty Acids [[place]-3] 1,000 mg PO BID 12/06/12 [History] Omeprazole [Prilosec] 40 mg PO BID 12/06/12 [History] Tamsulosin [Flomax] 0.4 mg PO DAILY 12/06/12 [History] Cholecalciferol (Vitamin D3) [Vitamin D3] 1,000 unit PO DAILY 05/04/14 [History] Dutasteride [Avodart] 0.5 mg PO BEDTIME 05/04/14 [History] Multivitamin [Multi-Vitamin Daily] 1 tab PO DAILY 05/04/14 [History] Vitamin B Complex [B-100 Complex] 100 mg PO DAILY 05/10/14 [History] Magnesium Oxide 600 mg PO DAILY #30 tablet 05/20/14 [Rx] Cyanocobalamin (Vitamin B-12) [Vitamin B-12] 1,000 mcg PO DAILY 06/05/15 [ History] Minocycline HCl 1 tab PO DAILY 04/26/16 [History] Omeprazole 1 tab PO DAILY 04/26/16 [History] Ciprofloxacin [Ciprofloxacin HCl] 500 mg PO BID #20 tablet 04/28/16 [Rx] Patient Handouts: Low-Fiber Diet Referrals: Gumaro Park MD [Primary Care Provider] - (f/u as needed if symptoms do not continue to improve) - Discharge Summary/Plan Comment DC Time >30 min.: No (25) - Patient Data Vitals - Most Recent: Last Vital Signs Temp 36.6 C 04/28/16 10:52 Pulse 60 04/28/16 10:52 Resp 16 04/28/16 10:52 BP 128/78 04/28/16 10:52 Pulse Ox 93 L 04/28/16 10:52 Weight - Most Recent: 75.6 kg I&O - Last 24 hours: Intake & Output 04/28/16 04/28/16 04/28/16 06:59 14:59 22:59 Intake Total 690 650 Output Total 1300 950 Balance -610 -300 Lab Results - Last 24 hrs: Laboratory Results - last 24 hr 04/28/16 04/28/16 Range/Units 04:00 04:00 WBC 7.0 (4.5-11.0) K/uL RBC 4.21 L (4.30-5.90) M/uL Hgb 13.1 (12.0-15.0) g/dL Hct 39.2 L (40.0-54.0) % MCV 93 (80-98) fL MCH 31 (27-31) pg MCHC 33 (32-36) % Plt Count 188 (150-400) K/uL Neut % (Auto) 38 (36-66) % Lymph % (Auto) 49 H (24-44) % Pickett % (Auto) 8 H (2-6) % Eos % (Auto) 4 (2-4) % Baso % (Auto) 1 (0-1) % Sodium 140 (140-148) mmol/L Potassium 3.9 (3.6-5.2) mmol/L Chloride 105 (100-108) mmol/L Carbon Dioxide 27 (21-32) mmol/L Anion Gap 7.6 (5.0-14.0) mmol/L BUN 15 (7-18) mg/dL Creatinine 1.2 (0.8-1.3) mg/dL Est Cr Clr Drug Dosing 44.07 mL/min Estimated GFR (MDRD) 59 L (>60) Glucose 103 (74-106) mg/dL Calcium 8.0 L (8.5-10.1) mg/dL Phosphorus 3.0 (2.5-4.9) mg/dL Ferritin 315 (8-388) ng/ml Total Bilirubin 0.5 (0.2-1.0) mg/dL AST 20 (15-37) U/L ALT 21 (12-78) U/L Alkaline Phosphatase 66 (46-116) U/L Pkh-[id number]-Bdrenvqxvya Pept 428 (5-450) pg/mL Total Protein 6.0 L (6.4-8.2) g/dL Albumin 3.0 L (3.4-5.0) g/dL Globulin 3.0 (2.3-3.5) g/dL Albumin/Globulin Ratio 1.0 L (1.2-2.2) Med Orders - Current: Current Medications Acetaminophen (Tylenol) 650 mg PO Q4H PRN PRN Reason: Headache Last Admin: 04/28/16 03:12 Dose: 650 mg Albuterol (Proventil Neb Soln) 2.5 mg NEB Q4H PRN PRN Reason: Shortness Of Breath/wheezing Ciprofloxacin (Ciprofloxacin Hcl) 500 mg PO BID [facility] Last Admin: 04/28/16 11:20 Dose: 500 mg Dutasteride (Avodart) 0.5 mg PO BEDTIME [facility] Last Admin: 04/27/16 21:00 Dose: 0.5 mg Fluoxetine HCl (Prozac) 20 mg PO DAILY [facility] Last Admin: 04/28/16 08:21 Dose: 20 mg Magnesium Sulfate 2 gm/ Premix 50 mls @ 25 mls/hr IV Q6H [facility] Stop: 04/29/16 11:59 Last Admin: 04/28/16 09:58 Dose: 25 mls/hr Sodium Chloride (Normal Saline) 1,000 mls @ 25 mls/hr IV ASDIRECTED [facility] Morphine Sulfate (Morphine) 2 mg IVPUSH Q4H PRN PRN Reason: Pain (severe 7-10) Last Admin: 04/27/16 02:15 Dose: 2 mg Ondansetron HCl (Zofran) 4 mg IVPUSH Q4H PRN PRN Reason: Nausea/Vomiting Pantoprazole Sodium (Protonix) 40 mg PO ACBREAKFAST [facility] Phenol (Phenaseptic Liquid) 0 ml MUCMEM ASDIRECTED PRN PRN Reason: Sore Throat Last Admin: 04/27/16 02:15 Dose: 1 spray Tamsulosin HCl (Flomax) 0.4 mg PO BEDTIME DENISSE Last Admin: 04/27/16 21:00 Dose: 0.4 mg Discontinued Medications Hydromorphone HCl (Dilaudid) 1 mg IVPUSH ONETIME ONE Stop: 04/26/16 19:58 Last Admin: 04/26/16 20:26 Dose: 1 mg Hydromorphone HCl (Dilaudid) 0.5 mg IVPUSH ONETIME ONE Stop: 04/26/16 22:06 Last Admin: 04/26/16 22:26 Dose: 0.5 mg Sodium Chloride (Normal Saline) 1,000 mls @ 150 mls/hr IV ASDIRECTED [facility] Last Admin: 04/26/16 20:27 Dose: 150 mls/hr Sodium Chloride (Normal Saline) 74 mls @ 3.4 mls/sec IV ASDIRECTED [facility] Sodium Chloride (Normal Saline) 1,000 mls @ 125 mls/hr IV ASDIRECTED [facility] Last Admin: 04/27/16 01:52 Dose: 125 mls/hr Ciprofloxacin/Dextrose 400 mg/ (Premix) 200 mls @ 200 mls/hr IV Q24H [facility] Last Admin: 04/27/16 00:13 Dose: 200 mls/hr Ciprofloxacin/Dextrose 400 mg/ (Premix) 200 mls @ 200 mls/hr IV Q12H [facility] Last Admin: 04/28/16 00:37 Dose: 200 mls/hr Potassium Chloride/Dextrose/Sod Cl (D5 1/2 Ns W/ 20 Meq/L Kcl) 1,000 mls @ 50 mls/hr IV ASDIRECTED [facility] Iopamidol (Isovue-300 (61%)) 112 ml IV . DIRECTED PRN PRN Reason: RADIOLOGY EXAM Stop: 04/27/16 20:01 Lidocaine HCl (Xylocaine 2% Jelly) Confirm Administered Dose 10 ml .ROUTE .STK- MED ONE Stop: 04/26/16 22:15 Last Admin: 04/26/16 22:27 Dose: 10 ml Ondansetron HCl (Zofran) 4 mg IVPUSH ONETIME ONE Stop: 04/26/16 19:58 Last Admin: 04/26/16 20:26 Dose: 4 mg Pantoprazole Sodium (Protonix Iv) 40 mg IV Q24H DENISSE Last Admin: 04/28/16 00:33 Dose: 40 mg Sodium Chloride (Saline Flush) 10 ml FLUSH ONETIME ONE Stop: 04/26/16 20:01 Last Admin: 04/26/16 20:27 Dose: 10 ml *Q Meaningful Use (DIS) - VTE *Q VTE Criteria *Q: - Stroke *Q Stroke Criteria *Q: - AMI *Q AMI Criteria *Q:
[2016-04-29] MEDS ORDERED: Pantoprazole 40 MG Tab.CR PO SCH (07:30)
--- NOTE | 2016-04-29 07:36 | PN ---
DATE OF SERVICE: 04/27/2016 HISTORY OF PRESENT ILLNESS: The patient is a 76-year-old male with multiple bowel obstructions, status post treatment with Farooq-en-Y gastric bypass. He also has had multiple incisional hernia repairs, of which the most recent is remaining intact. He did develop recurrent abdominal pain and nausea, as well as some bilious emesis yesterday and presented to the emergency room. CT scan showed a picture of a small bowel obstruction with maximum point of small bowel dilation being around 3.5 cm. There is no well-defined transition point but the distal small bowel was decompressed. Overnight, he had an NG tube in for a period of time, which he pulled out. Since early this morning, i.e. over the last 8 hours or so, he has not had any crampy abdominal pain or nausea but has not any significant oral intake as well. Examination shows the abdomen to be mildly distended. The hernia repair appeared to be intact. At this point, there is no significant tenderness noted. Labs show a mildly low magnesium, otherwise are unremarkable. One additional finding is that his abdominal aortic aneurysm in the last 12 months (his previous abdominal CT was in April of 2015) shows the abdominal aortic aneurysm to have increased from 3.2 to 3.7 cm. This is not large enough to warrant repair at this point, but I think we would need to begin more frequent ultrasound surveillance of that, probably every 4 months, and if it gets into the low 4s, probably consider an endovascular repair. With regard to the abdominal problem acutely, we will keep him n.p.o. except ice chips and sips of water tonight and repeat abdominal x-ray tomorrow. If that looks okay, we will restart full liquid diet and see how things go from that point forward. We will give him some magnesium supplementation in the meantime via IV. Dhaval Blank MD /[id number]
--- NOTE | 2016-04-29 07:43 | PN ---
DATE OF SERVICE: 04/28/2016 The patient has been afebrile with stable vital signs. Overnight, he did not complain of any cramping. He did tolerate the clear liquid diet satisfactorily. Will go to full liquid diet today. If he tolerates that, he will probably be discharged later today. He will likely be someone we will keep on full liquid diet for a week and then on a low residue diet long-term. We will see the patient early this afternoon, after he has had a couple of meals with full liquid diet and has a chance to have Dietary review those diets with him. Dhaval Blank MD /[id number]
== END 2016-04-28 16:00 | disposition home or self-care (01) | DRG 389 ==
LOC: JP.ED 18:57 → JP.MS 23:01
PROVIDERS: ADMIT Family Medicine; ATTEND Surgery
DX: K56.69 Other intestinal obstruction (principal); N39.0 Urinary tract infection, site not specified; I10 Essential (primary) hypertension; B95.2 Enterococcus as the cause of diseases classified elsewhere; Z95.0 Presence of cardiac pacemaker; Z98.84 Bariatric surgery status; Z87.891 Personal history of nicotine dependence; Z98.0 Intestinal bypass and anastomosis status; E83.42 Hypomagnesemia; J42 Unspecified chronic bronchitis; F41.9 Anxiety disorder, unspecified; F32.9 Major depressive disorder, single episode, unspecified; E53.8 Deficiency of other specified B group vitamins; D50.9 Iron deficiency anemia, unspecified; K21.9 Gastro-esophageal reflux disease without esophagitis; E55.9 Vitamin D deficiency, unspecified; H91.90 Unspecified hearing loss, unspecified ear; H54.7 Unspecified visual loss; Z87.01 Personal history of pneumonia (recurrent); Z87.440 Personal history of urinary (tract) infections; E78.5 Hyperlipidemia, unspecified; I71.4 Abdominal aortic aneurysm, without rupture; Z79.2 Long term (current) use of antibiotics; N40.0 Benign prostatic hyperplasia without lower urinary tract symptoms
CPT/HCPCS: 36415; 74176; 80053; 81001; 83605; 83690; 85025; 86140; 87086; 96361; 96374; 96375; 96376; 99285; J1170 ×2; J2405; J7040; J7050; 74020; 74020-26; 82728; 83735; 83880; 84100; 85027; 87088; 87186; 93005; A9270-GY; C9113; J0744; J2270; J3475

== ENCOUNTER 2016-07-06 01:11 | Emergency (ER) | payer MEDICARE, BC ==
[2016-07-06] MEDS ORDERED: Sodium Chloride 0.9% 1,000 ML IV SCH (01:30)
[2016-07-06 01:47] VITALS: BP 109/78
[2016-07-06] MEDS ORDERED: cefTRIAXone 1 GM in Sodium Chloride 0.9% 50 ML IV ONE (02:59)
--- NOTE | 2016-07-06 03:20 | EDM.PDOC ---
ED HPI GI/ABDOMINAL - General Chief Complaint: Genitourinary Problem Stated Complaint: BLOOD IN URINE Time Seen by Provider: 07/06/16 01:31 Source: Reports: Patient, Family () History Limitations: Reports: No limitations - History of Present Illness INITIAL COMMENTS - FREE TEXT/NARRATIVE: abdominal pain; this is a 76 year old male presents to ER with his , concerns of not feeling well for a few days, but today at 8 pm had a sudden onset of left sided abdomen and back pain. reports had low pelvis pain, urgency , blood in urine. felt like he had a fever, no nausea, vomiting or diarrhea. Timing/Duration: Reports: Hour(s):, Day(s): Location: flank (left) Quality: Reports: ache Severity: moderate Worsens with: Reports: urinating Associated Symptoms: Reports: back pain - Related Data Allergies/ADRs: Allergies Allergy/AdvReac Type Severity Reaction Status Date / Time No Known Allergies Allergy Verified 07/06/16 01:51 Home Meds: Home Meds Calcium Citrate/Vitamin D3 [Calcium Citrate - Vit D3 Tab] 1 each PO DAILY [History] FLUoxetine HCl [Fluoxetine] 20 mg PO DAILY 12/06/12 [History] Ferrous Sulfate [Iron] 325 mg PO BID 12/06/12 [History] [place]-3 Fatty Acids [[place]-3] 1,000 mg PO BID 12/06/12 [History] Omeprazole [Prilosec] 40 mg PO BID 12/06/12 [History] Tamsulosin [Flomax] 0.4 mg PO DAILY 12/06/12 [History] Cholecalciferol (Vitamin D3) [Vitamin D3] 1,000 unit PO DAILY 05/04/14 [History] Dutasteride [Avodart] 0.5 mg PO BEDTIME 05/04/14 [History] Multivitamin [Multi-Vitamin Daily] 1 tab PO DAILY 05/04/14 [History] Vitamin B Complex [B-100 Complex] 100 mg PO DAILY 05/10/14 [History] Magnesium Oxide 600 mg PO DAILY #30 tablet 05/20/14 [Rx] Cyanocobalamin (Vitamin B-12) [Vitamin B-12] 1,000 mcg PO DAILY 06/05/15 [ History] Minocycline HCl 1 tab PO DAILY 04/26/16 [History] Omeprazole 1 tab PO DAILY 04/26/16 [History] Ciprofloxacin [Ciprofloxacin HCl] 500 mg PO BID #20 tablet 04/28/16 [Rx] Past Medical History HEENT History: Reports: Cataract, Hard of hearing, Impaired vision Cardiovascular History: Reports: Aneurysm, Hypertension, Pacemaker Respiratory History: Reports: Asthma, Pneumonia, recurrent, Sleep apnea Gastrointestinal History: Reports: Bowel obstruction, Diverticulosis, Gastritis , GI bleed, Hemorrhoids, Hiatal hernia, Other (see below) Other Gastrointestinal History: hernia Genitourinary History: Reports: Prostate disorder, Renal calculus Musculoskeletal History: Reports: Back pain, chronic, Fracture, Osteoarthritis Neurological History: Reports: Concussion, Vertigo Other Neuro History: syncope Psychiatric History: Reports: Anxiety, Depression Endocrine/Metabolic History: Reports: Vitamin D deficiency Hematologic History: Reports: Anemia, B12 deficiency, Blood transfusion(s), Iron deficiency Dermatologic History: Reports: Other (see below) Other Dermatologic History: rosecea - Infectious Disease History Infectious Disease History: Reports: Chicken pox Other Infectious Disease History: pt cant remember - Past Surgical History HEENT Surgical History: Reports: Oral surgery Cardiovascular Surgical History: Reports: Pacer GI Surgical History: Reports: Appendectomy, Bariatric procedure, Colonoscopy, Hernia repair/other, Small bowel Other GI Surgeries/Procedures: hiatal hernia repair Male Surgical History: Reports: Kidney stone extraction, TURP-Transurethral resection of prostate Social & Family History - Family History Cardiac: Reports: Hypertension, [place] Musculoskeletal: Reports: Arthritis, Fibromyalgia Psychiatric: Reports: Anxiety, Depression Dermatologic: Reports: Other (see below) Other Dermatologic Family History: rosacea Oncologic: Reports: Bone, Liver, Metastatic, Skin - Tobacco Use Smoking Status *Q: Never Smoker Years of Tobacco use: 35 Packs/Tins Daily: 3 Used Tobacco, but Quit: Yes Month Tobacco Last Used: 27 yrs ago Second Hand Smoke Exposure: No - Caffeine Use Caffeine Use: Reports: Coffee Caffeine Use Comment: 1.5 cups/day - Alcohol Use Days Per Week of Alcohol Use: 4 Number of Drinks Per Day: 3 Total Drinks Per Week: 12 - Recreational Drug Use Recreational Drug Use: No ED ROS GENERAL - Review of Systems Review Of Systems: See Below Constitutional: Reports: chills, malaise HEENT: Reports: No symptoms Respiratory: Reports: No Symptoms Cardiovascular: Reports: No symptoms Endocrine: Reports: no symptoms GI/Abdominal: Reports: Abdominal pain (left sided), Decreased appetite, Nausea : Reports: dysuria, flank pain, frequency, hematuria, urgency Musculoskeletal: Reports: no symptoms, back pain Skin: Reports: no symptoms Neurological: Reports: No Symptoms Psychiatric: Reports: No symptoms ED EXAM, GI/ABD - Physical Exam Exam: See Below Exam Limited By: No limitations General Appearance: alert, WD/WN, no apparent distress Eyes: bilateral: normal appearance, EOMI Ears: normal external exam, normal canal, hearing grossly normal, normal TMs Nose: normal inspection, normal mucosa, no blood Throat/Mouth: Normal inspection, Normal lips, Normal teeth, Normal gums, Normal oropharynx, Normal voice, No airway compromise Head: atraumatic, normocephalic Neck: normal inspection, supple, non-tender, full range of motion Respiratory/Chest: no respiratory distress, lungs clear, normal breath sounds, no accessory muscle use, chest non-tender Cardiovascular: normal peripheral pulses, regular rate, rhythm, no edema, no gallop, no JVD, no murmur, no rub GI/Abdominal: soft, no distention, tenderness (lt flank) (Male) Exam: Deferred Rectal (Males) Exam: Deferred Back Exam: CVA tenderness (L), decreased range of motion, muscle spasm Extremities: normal inspection, normal range of motion, non-tender, normal capillary refill, no pedal edema Neurological: alert, oriented, CN II-XII intact, normal cognition, normal gait, normal reflexes, no motor/sensory deficits Psychiatric: normal affect, normal mood Skin Exam: Warm, Dry, Intact, Normal color, No rash Lymphatic: no adenopathy Course - Vital Signs Last Recorded V/S: Last Vital Signs Temp 36.2 C 07/06/16 01:44 Pulse 71 07/06/16 01:44 Resp 14 07/06/16 01:44 BP 109/78 07/06/16 01:44 Pulse Ox 98 07/06/16 01:44 - Orders/Labs/Meds Orders: Active Orders 24 hr Category Date Time Status Kidney Stone Protocol [CT] Stat Exams 07/06/16 01:30 Taken Sodium Chloride 0.9% [Normal Saline] 1,000 ml Med 07/06/16 01:30 Active IV ASDIRECTED Medication Orders Sodium Chloride (Normal Saline) 1,000 mls @ 999 mls/hr IV ASDIRECTED DENISSE Last Infusion: 07/06/16 03:18 Dose: 999 mls/hr Admin: 07/06/16 02:01 Dose: 125 mls/hr Labs: Laboratory Tests 07/06/16 07/06/16 07/06/16 Range/Units 01:29 01:29 01:29 WBC 10.7 (4.5-11.0) K/uL RBC 4.22 L (4.30-5.90) M/uL Hgb 13.2 (12.0-15.0) g/dL Hct 39.2 L (40.0-54.0) % MCV 93 (80-98) fL MCH 31 (27-31) pg MCHC 34 (32-36) % Plt Count 253 (150-400) K/uL Neut % (Auto) 44 (36-66) % Lymph % (Auto) 45 H (24-44) % [place] % (Auto) 8 H (2-6) % Eos % (Auto) 2 (2-4) % Baso % (Auto) 1 (0-1) % PT 9.7 (9.5-12.0) sec INR 0.92 (0.80-1.20) Sodium (140-148) mmol/L Potassium (3.6-5.2) mmol/L Chloride (100-108) mmol/L Carbon Dioxide (21-32) mmol/L Anion Gap (5.0-14.0) mmol/L BUN (7-18) mg/dL Creatinine (0.8-1.3) mg/dL Est Cr Clr Drug Dosing Estimated GFR (MDRD) (>60) Glucose (74-106) mg/dL Calcium (8.5-10.1) mg/dL Total Bilirubin (0.2-1.0) mg/dL AST (15-37) U/L ALT (12-78) U/L Alkaline Phosphatase (46-116) U/L Total Protein (6.4-8.2) g/dL Albumin (3.4-5.0) g/dL Globulin (2.3-3.5) g/dL Albumin/Globulin Ratio (1.2-2.2) Urine Color Red Urine Appearance Cloudy Urine pH 7.0 (4.5-8.0) Ur Specific [place] 1.010 (1.008-1.030) Urine Protein 500 H (NEGATIVE) mg/dL Urine Glucose (UA) 50 H (NEGATIVE) mg/dL Urine Ketones Negative (NEGATIVE) mg/dL Urine Occult Blood Large (NEGATIVE) Urine Nitrite Negative (NEGAITVE) Urine Bilirubin Negative (NEGATIVE) Urine Urobilinogen Normal (NORMAL) mg/dL Ur Leukocyte Esterase Small (NEGATIVE) Urine RBC Packed H (0-5) Urine WBC (0-5) Ur Epithelial Cells Amorphous Sediment Urine Bacteria Urine Mucus 07/06/16 Range/Units 01:29 WBC (4.5-11.0) K/uL RBC (4.30-5.90) M/uL Hgb (12.0-15.0) g/dL Hct (40.0-54.0) % MCV (80-98) fL MCH (27-31) pg MCHC (32-36) % Plt Count (150-400) K/uL Neut % (Auto) (36-66) % Lymph % (Auto) (24-44) % [place] % (Auto) (2-6) % Eos % (Auto) (2-4) % Baso % (Auto) (0-1) % PT (9.5-12.0) sec INR (0.80-1.20) Sodium 142 (140-148) mmol/L Potassium 3.9 (3.6-5.2) mmol/L Chloride 105 (100-108) mmol/L Carbon Dioxide 29 (21-32) mmol/L Anion Gap 8.1 (5.0-14.0) mmol/L BUN 28 H D (7-18) mg/dL Creatinine 1.8 H (0.8-1.3) mg/dL Est Cr Clr Drug Dosing TNP Estimated GFR (MDRD) 37 L (>60) Glucose 153 H (74-106) mg/dL Calcium 8.0 L (8.5-10.1) mg/dL Total Bilirubin 0.3 (0.2-1.0) mg/dL AST 22 (15-37) U/L ALT 23 (12-78) U/L Alkaline Phosphatase 90 (46-116) U/L Total Protein 6.7 (6.4-8.2) g/dL Albumin 3.3 L (3.4-5.0) g/dL Globulin 3.4 (2.3-3.5) g/dL Albumin/Globulin Ratio 1.0 L (1.2-2.2) Urine Color Urine Appearance Urine pH (4.5-8.0) Ur Specific [place] (1.008-1.030) Urine Protein (NEGATIVE) mg/dL Urine Glucose (UA) (NEGATIVE) mg/dL Urine Ketones (NEGATIVE) mg/dL Urine Occult Blood (NEGATIVE) Urine Nitrite (NEGAITVE) Urine Bilirubin (NEGATIVE) Urine Urobilinogen (NORMAL) mg/dL Ur Leukocyte Esterase (NEGATIVE) Urine RBC (0-5) Urine WBC (0-5) Ur Epithelial Cells Amorphous Sediment Urine Bacteria Urine Mucus Meds: Medications Generic Name Dose Route Start Last Admin Trade Name Freq PRN Reason Stop Dose Admin Sodium Chloride 1,000 mls @ 999 mls/hr 07/06/16 01:30 07/06/16 03:18 Normal Saline IV 999 mls/hr ASDIRECTED DENISSE Infusion Discontinued Medications Generic Name Dose Route Start Last Admin Trade Name Freq PRN Reason Stop Dose Admin Ceftriaxone Sodium 1 gm/ 50 mls @ 100 mls/hr 07/06/16 02:59 07/06/16 03:18 Sodium Chloride IV 07/06/16 03:28 100 mls/hr ONETIME ONE Administration Departure - Departure Time of Disposition: 03:51 Disposition: Home, Self-Care 01 Condition: good Clinical Impression: UTI, Urinary tract infectious disease, Kidney stone Instructions: Kidney Stones, [id number], Urinary Tract Infection, Adult Referrals: Gumaro Park MD [Primary Care Provider] - Forms: ED Department Discharge Care Plan Goals: kidney stone; left side bladder infection -IV fluids NS 1000ml/hr -IV Rocephin 1 gram discharge to home. Advise to -drink atleast 8 to 10 glasses of water to flush out kidney and hydrations -take medication as prescribed -doxy one tablet two times a day til all gone -Tylenol #3 take one every 4 to 6 hours as needed for pain Please make appointment with Primary Care Provider for recheck Please call Urologist in am for follow up appointment for left sided kidney stone Return to ER if has any increased pain, fever, chills, nausea, vomiting, diarrhea, rash or not improved. - Problem List & Annotations (1) Kidney stone on left side SNOMED Code(s): 80267118 Code(s): N20.0 - CALCULUS OF KIDNEY Status: Acute Priority: High Current Visit: Yes (2) Complicated UTI (urinary tract infection) SNOMED Code(s): 32821569 Code(s): N39.0 - URINARY TRACT INFECTION, SITE NOT SPECIFIED Status: Acute Priority: High Current Visit: Yes - Problem List Review Problem List Initiated/Reviewed/Updated: Yes - My Orders Last 24 Hours: My Active Orders 07/06/16 01:30 Kidney Stone Protocol [CT] Stat Sodium Chloride 0.9% [Normal Saline] 1,000 ml IV ASDIRECTED - Assessment/Plan Last 24 Hours: My Active Orders 07/06/16 01:30 Kidney Stone Protocol [CT] Stat Sodium Chloride 0.9% [Normal Saline] 1,000 ml IV ASDIRECTED Plan: kidney stone; left side bladder infection -IV fluids NS 1000ml/hr -IV Rocephin 1 gram discharge to home. Advise to -drink at least 8 to 10 glasses of water to flush out kidney and hydration of body -take medication as prescribed -doxy one tablet two times a day til all gone -Tylenol #3 take one every 4 to 6 hours as needed for pain Please make appointment with Primary Care Provider for recheck Please call Urologist in am for follow up appointment for left sided kidney stone Return to ER if has any increased pain, fever, chills, nausea, vomiting, diarrhea, rash or not improved. copy of CT kidney stone protocol given to .
== END 2016-07-06 04:52 | disposition home or self-care (01) ==
LOC: JP.ED 01:11
DX: N39.0 Urinary tract infection, site not specified (principal); N20.0 Calculus of kidney; I10 Essential (primary) hypertension; F41.9 Anxiety disorder, unspecified; F32.9 Major depressive disorder, single episode, unspecified; Z90.49 Acquired absence of other specified parts of digestive tract; Z98.84 Bariatric surgery status; Z98.890 Other specified postprocedural states; Z79.899 Other long term (current) drug therapy
CPT/HCPCS: 36415; 74176; 80053; 81001; 85025; 85610; 99284; J0696; J7040; J7050

== ENCOUNTER 2016-07-10 16:15 | Emergency (ER) | payer MEDICARE, BC ==
--- NOTE | 2016-07-10 17:09 | EDM.PDOC ---
ED HPI GENERAL MEDICAL PROBLEM - General Chief Complaint: Genitourinary Problem Stated Complaint: ILLNESS Time Seen by Provider: 07/10/16 16:18 Source of Information: Reports: Patient, Family, Old Records, RN Notes Reviewed History Limitations: Reports: No Limitations - History of Present Illness INITIAL COMMENTS - FREE TEXT/NARRATIVE: 76-year-old gentleman presents emergency department today with complaint of urinary retention, he is passing gross hematuria and blood clots recently had a bladder stone removal on 06-[address] scan on 07-06 for passage of gross hematuria was placed on Keflex at that time. Did have followup with urology yesterday recommended three-way Gardner with urination if he presents with hematuria. Denies any other symptoms Pelvic Pain Score (Numeric/FACES): 10 - Related Data Allergies Allergy/AdvReac Type Severity Reaction Status Date / Time No Known Allergies Allergy Verified 07/10/16 17:04 Home Meds: Home Meds Calcium Citrate/Vitamin D3 [Calcium Citrate - Vit D3 Tab] 1 each PO DAILY [History] FLUoxetine HCl [Fluoxetine] 20 mg PO DAILY 12/06/12 [History] Ferrous Sulfate [Iron] 325 mg PO BID 12/06/12 [History] [place]-3 Fatty Acids [[place]-3] 1,000 mg PO BID 12/06/12 [History] Omeprazole [Prilosec] 40 mg PO BID 12/06/12 [History] Tamsulosin [Flomax] 0.4 mg PO DAILY 12/06/12 [History] Cholecalciferol (Vitamin D3) [Vitamin D3] 1,000 unit PO DAILY 05/04/14 [History] Dutasteride [Avodart] 0.5 mg PO BEDTIME 05/04/14 [History] Multivitamin [Multi-Vitamin Daily] 1 tab PO DAILY 05/04/14 [History] Vitamin B Complex [B-100 Complex] 100 mg PO DAILY 05/10/14 [History] Magnesium Oxide 600 mg PO DAILY #30 tablet 05/20/14 [Rx] Cyanocobalamin (Vitamin B-12) [Vitamin B-12] 1,000 mcg PO DAILY 06/05/15 [ History] Minocycline HCl 1 tab PO DAILY 04/26/16 [History] Omeprazole 1 tab PO DAILY 04/26/16 [History] Ciprofloxacin [Ciprofloxacin HCl] 500 mg PO BID #20 tablet 04/28/16 [Rx] Past Medical History HEENT History: Reports: Cataract, Hard of Hearing, Impaired Vision Cardiovascular History: Reports: Aneurysm, Hypertension, Pacemaker Respiratory History: Reports: Asthma, Pneumonia, Recurrent, Sleep Apnea Gastrointestinal History: Reports: Bowel Obstruction, Diverticulosis, Gastritis , GI Bleed, Hemorrhoids, Hiatal Hernia, Other (See Below) Other Gastrointestinal History: hernia Genitourinary History: Reports: Prostate Disorder, Renal Calculus Musculoskeletal History: Reports: Back Pain, Chronic, Fracture, Osteoarthritis Neurological History: Reports: Concussion, Vertigo Other Neuro History: syncope Psychiatric History: Reports: Anxiety, Depression Endocrine/Metabolic History: Reports: Vitamin D Deficiency Hematologic History: Reports: Anemia, B12 Deficiency, Blood Transfusion(s), Iron Deficiency Dermatologic History: Reports: Other (See Below) Other Dermatologic History: rosecea - Infectious Disease History Infectious Disease History: Reports: Chicken Pox Other Infectious Disease History: pt cant remember - Past Surgical History HEENT Surgical History: Reports: Oral Surgery GI Surgical History: Reports: Appendectomy, Bariatric Procedure, Colonoscopy, Hernia Repair/Other, Small Bowel Male Surgical History: Reports: Kidney Stone Extraction, TURP-Transurethral Resection of Prostate Social & Family History - Family History Cardiac: Reports: Hypertension, [place] Musculoskeletal: Reports: Arthritis, Fibromyalgia Psychiatric: Reports: Anxiety, Depression Dermatologic: Reports: Other (See Below) Other Dermatologic Family History: rosacea Oncologic: Reports: Bone, Liver, Metastatic, Skin - Tobacco Use Smoking Status *Q: Never Smoker Years of Tobacco use: 35 Packs/Tins Daily: 3 Used Tobacco, but Quit: Yes Month Tobacco Last Used: 27 yrs ago Second Hand Smoke Exposure: No - Caffeine Use Caffeine Use: Reports: Coffee Caffeine Use Comment: 1.5 cups/day - Alcohol Use Days Per Week of Alcohol Use: 4 Number of Drinks Per Day: 3 Total Drinks Per Week: 12 - Recreational Drug Use Recreational Drug Use: No ED ROS GENERAL - Review of Systems Review Of Systems: See Below Constitutional: Denies: Fever, Chills Respiratory: Reports: No Symptoms Cardiovascular: Reports: No Symptoms GI/Abdominal: Reports: Abdominal Pain : Reports: Urinary Retention ED EXAM, RENAL/ - Physical Exam Exam: See Below Exam Limited By: No Limitations General Appearance: Alert, WD/WN, No Apparent Distress GI/Abdominal: Soft, Tender (Suprapubic) Course - Vital Signs Last Recorded V/S: Last Vital Signs Temp 97.5 F 07/10/16 17:01 Pulse 95 07/10/16 18:14 Resp 18 07/10/16 18:14 BP 113/70 07/10/16 18:14 Pulse Ox 98 07/10/16 18:14 - Orders/Labs/Meds Orders: Active Orders 24 hr Category Date Time Status Bladder Irrigation [RC] BID Care 07/10/16 17:02 Active Insert Gardner Catheter [Insert Urinary Catheter] [OM.PC] Care 07/10/16 17:15 Ordered Q24H Urinary Catheter Assessment [RC] ASDIRECTED Care 07/10/16 17:04 Active Meds: Medications Discontinued Medications Generic Name Dose Route Start Last Admin Trade Name Karen PRN Reason Stop Dose Admin Lidocaine HCl 10 ml 07/10/16 17:15 07/10/16 17:32 Xylocaine 2% Jelly MUCMEM 07/10/16 17:16 10 ml ONETIME ONE Administration Departure - Departure Time of Disposition: 18:20 Disposition: Home, Self-Care 01 Condition: good Clinical Impression: Retention of urine - Discharge Information Forms: ED Department Discharge Additional Instructions: If you're catheter starts to fill with blood clots or dark red urine please return to the emergency department for irrigation of your bladder, followup with your primary care provider on Wednesday for reevaluation and keep your appointment with urology on the - My Orders Last 24 Hours: My Active Orders 07/10/16 17:02 Bladder Irrigation [RC] BID 07/10/16 17:04 Urinary Catheter Assessment [RC] ASDIRECTED 07/10/16 17:15 Insert Gardner Catheter [Insert Urinary Catheter] [OM.PC] Q24H - Assessment/Plan Last 24 Hours: My Active Orders 07/10/16 17:02 Bladder Irrigation [RC] BID 07/10/16 17:04 Urinary Catheter Assessment [RC] ASDIRECTED 07/10/16 17:15 Insert Gardner Catheter [Insert Urinary Catheter] [OM.PC] Q24H Plan: Assessment Acuity = acute Site and laterality = urinary retention complicated patient with recent bladder biopsy Etiology = secondary to blood clots Manifestations = none Location of injury = home Lab values = none Plan 3-way catheter was placed per urology recommendations 3 L of fluid flushed plan is to leave a three-way catheter in place he will return to the emergency department as needed depending on the amount of blood clots he produces he will follow up with his primary care on Wednesday for reevaluation he has an appointment with urology on the of this month Patient was in agreement with the plan all questions were answered, they were instructed to return to the emergency department or call for worsening symptoms. This note was dictated using [employer] voice recognition software please call with any questions.
[2016-07-10] MEDS ORDERED: Lidocaine 2% Jelly 10 ML Urojet MUCMEM ONE (17:15)
[2016-07-10 18:15] VITALS: BP 113/70
== END 2016-07-10 19:40 | disposition home or self-care (01) ==
LOC: JP.ED 16:15
DX: R33.9 Retention of urine, unspecified (principal); I10 Essential (primary) hypertension; F41.9 Anxiety disorder, unspecified; F32.9 Major depressive disorder, single episode, unspecified; Z90.49 Acquired absence of other specified parts of digestive tract; Z98.84 Bariatric surgery status; Z87.442 Personal history of urinary calculi; Z98.890 Other specified postprocedural states; Z79.899 Other long term (current) drug therapy
CPT/HCPCS: 51702; 99282; 99283-25

== ENCOUNTER 2016-07-13 16:14 | Emergency (ER) | payer MEDICARE, BC ==
--- NOTE | 2016-07-13 16:55 | EDM.PDOC ---
ED HPI GENERAL MEDICAL PROBLEM - General Chief Complaint: Genitourinary Problem Stated Complaint: CATHETER REMOVAL Time Seen by Provider: 07/13/16 16:45 Source of Information: Reports: Patient History Limitations: Reports: No Limitations - History of Present Illness INITIAL COMMENTS - FREE TEXT/NARRATIVE: Pt here requesting scherer cathter be removed. Placed after unable to void on 07/10. Pt has spoken to his urologist and recommended removal. PCP in [place] and prefers to have removed here, as was placed here, and avoid trip to PCP. Pt had clearing of urine of clot or debris yesterday afternoon. Had been flushing at home. Has remained yellow in color since that time. No fever, chills or other concerns. - Related Data Allergies Allergy/AdvReac Type Severity Reaction Status Date / Time No Known Allergies Allergy Verified 07/10/16 17:04 Home Meds: Home Meds Calcium Citrate/Vitamin D3 [Calcium Citrate - Vit D3 Tab] 1 each PO DAILY [History] FLUoxetine HCl [Fluoxetine] 20 mg PO DAILY 12/06/12 [History] Ferrous Sulfate [Iron] 325 mg PO BID 12/06/12 [History] [place]-3 Fatty Acids [[place]-3] 1,000 mg PO BID 12/06/12 [History] Omeprazole [Prilosec] 40 mg PO BID 12/06/12 [History] Tamsulosin [Flomax] 0.4 mg PO DAILY 12/06/12 [History] Cholecalciferol (Vitamin D3) [Vitamin D3] 1,000 unit PO DAILY 05/04/14 [History] Dutasteride [Avodart] 0.5 mg PO BEDTIME 05/04/14 [History] Multivitamin [Multi-Vitamin Daily] 1 tab PO DAILY 05/04/14 [History] Vitamin B Complex [B-100 Complex] 100 mg PO DAILY 05/10/14 [History] Magnesium Oxide 600 mg PO DAILY #30 tablet 05/20/14 [Rx] Cyanocobalamin (Vitamin B-12) [Vitamin B-12] 1,000 mcg PO DAILY 06/05/15 [ History] Minocycline HCl 1 tab PO DAILY 04/26/16 [History] Omeprazole 1 tab PO DAILY 04/26/16 [History] Ciprofloxacin [Ciprofloxacin HCl] 500 mg PO BID #20 tablet 02/28/17 [Rx] Past Medical History HEENT History: Reports: Cataract, Hard of Hearing, Impaired Vision Cardiovascular History: Reports: Aneurysm, Hypertension, Pacemaker Respiratory History: Reports: Asthma, Pneumonia, Recurrent, Sleep Apnea Gastrointestinal History: Reports: Bowel Obstruction, Diverticulosis, Gastritis , GI Bleed, Hemorrhoids, Hiatal Hernia, Other (See Below) Other Gastrointestinal History: hernia Genitourinary History: Reports: Prostate Disorder, Renal Calculus Musculoskeletal History: Reports: Back Pain, Chronic, Fracture, Osteoarthritis Neurological History: Reports: Concussion, Vertigo Other Neuro History: syncope Psychiatric History: Reports: Anxiety, Depression Endocrine/Metabolic History: Reports: Vitamin D Deficiency Hematologic History: Reports: Anemia, B12 Deficiency, Blood Transfusion(s), Iron Deficiency Dermatologic History: Reports: Other (See Below) Other Dermatologic History: rosecea - Infectious Disease History Infectious Disease History: Reports: Chicken Pox Other Infectious Disease History: pt cant remember - Past Surgical History HEENT Surgical History: Reports: Oral Surgery GI Surgical History: Reports: Appendectomy, Bariatric Procedure, Colonoscopy, Hernia Repair/Other, Small Bowel Male Surgical History: Reports: Kidney Stone Extraction, TURP-Transurethral Resection of Prostate Social & Family History - Family History Cardiac: Reports: Hypertension, [place] Musculoskeletal: Reports: Arthritis, Fibromyalgia Psychiatric: Reports: Anxiety, Depression Dermatologic: Reports: Other (See Below) Other Dermatologic Family History: rosacea Oncologic: Reports: Bone, Liver, Metastatic, Skin - Tobacco Use Smoking Status *Q: Former Smoker Years of Tobacco use: 20 Packs/Tins Daily: 3 Used Tobacco, but Quit: Yes Month Tobacco Last Used: july Second Hand Smoke Exposure: No - Caffeine Use Caffeine Use: Reports: Coffee Caffeine Use Comment: 1.5 cups/day - Alcohol Use Days Per Week of Alcohol Use: 4 Number of Drinks Per Day: 3 Total Drinks Per Week: 12 - Recreational Drug Use Recreational Drug Use: No ED ROS GENERAL - Review of Systems Review Of Systems: ROS reveals no pertinent complaints other than HPI. ED EXAM, RENAL/ - Physical Exam Exam: See Below Exam Limited By: No Limitations General Appearance: Alert, No Apparent Distress Rectal (Males) Exam: Deferred Extremities: Other (Ambulates without noted concerns.) Neurological: Alert, Oriented, Normal Cognition, Normal Gait Psychiatric: Normal Affect, Normal Mood ED PROCEDURES - Additional/Other Procedure(s) Procedure(s) (Free Text): Removal of catheter by TC Long. Course - Vital Signs Last Recorded V/S: Last Vital Signs Temp 36.0 C 07/13/16 16:41 Pulse 87 07/13/16 16:41 Resp 16 07/13/16 16:41 BP 136/95 H 07/13/16 16:41 Pulse Ox 96 07/13/16 16:41 Departure - Departure Time of Disposition: 16:54 Disposition: Home, Self-Care 01 Condition: good Clinical Impression: Retention of urine - Discharge Information Instructions: Acute Urinary Retention, Male, [id number] Referrals: Gumaro Park MD [Primary Care Provider] - Forms: ED Department Discharge Additional Instructions: 1. Monitor urine output and return to ER if not able to void or contact your urologist. 2. Follow up with your urologist as scheduled.
[2016-07-13 17:30] VITALS: BP 136/95
== END 2016-07-13 17:10 | disposition home or self-care (01) ==
LOC: JP.ED 16:14
DX: R33.9 Retention of urine, unspecified (principal); F32.9 Major depressive disorder, single episode, unspecified; F41.9 Anxiety disorder, unspecified; Z90.49 Acquired absence of other specified parts of digestive tract; Z98.84 Bariatric surgery status; Z87.442 Personal history of urinary calculi; Z98.890 Other specified postprocedural states; Z87.891 Personal history of nicotine dependence; Z95.0 Presence of cardiac pacemaker; Z79.899 Other long term (current) drug therapy
CPT/HCPCS: 99282; 99283

== ENCOUNTER 2016-09-24 21:20 | Emergency (ER) | payer MEDICARE, BC | END 2016-09-24 23:04 | disposition left against medical advice (07) | LOC: JP.ED 21:20 | DX: Z53.21 Procedure and treatment not carried out due to patient leaving prior to being seen by health care provider (principal) | CPT/HCPCS: 99281 ==

== ENCOUNTER 2017-02-19 18:28 | Emergency (ER) | payer MEDICARE, BC ==
[2017-02-19] MEDS ORDERED: Ondansetron 4 MG/2 ML SDV IVPUSH ONE (19:46)
[2017-02-19] MEDS ORDERED: HYDROmorphone 0.5 MG/0.5 ML Syringe IVPUSH ONE (19:46)
--- NOTE | 2017-02-19 19:47 | EDM.PDOC ---
ED HPI GENERAL MEDICAL PROBLEM - General Chief Complaint: Abdominal Pain Stated Complaint: STOMACH PAIN/HARDNESS Time Seen by Provider: 02/19/17 19:35 Source of Information: Reports: Patient History Limitations: Reports: No Limitations - History of Present Illness INITIAL COMMENTS - FREE TEXT/NARRATIVE: 68-year-old male with a history of recurring bowel obstruction has again developed abdominal pain over the past 4 days. It was fairly bad 3 days ago, he "toughed it out all night" and seemed to improve but the pain never went away. It's worse again today with persistent nausea. He is still having some small bowel movements. His abdomen feels distended and painful. No fevers or chills, he also thinks he passed a kidney stone yesterday. Onset: Gradual (Symptoms have been developing over the last 4 days) Location: Reports: Abdomen Severity: Moderate Associated Symptoms: Reports: Malaise, Nausea/Vomiting. Denies: Chest Pain, Cough, Fever/Chills, Shortness of Breath Epigastric Pain Score (Numeric/FACES): 6 - Related Data Allergies Allergy/AdvReac Type Severity Reaction Status Date / Time No Known Allergies Allergy Verified 02/19/17 19:06 Home Meds: Home Meds Calcium Citrate/Vitamin D3 [Calcium Citrate - Vit D3 Tab] 1 each PO DAILY [History] FLUoxetine HCl [Fluoxetine] 20 mg PO DAILY 12/06/12 [History] Ferrous Sulfate [Iron] 325 mg PO BID 12/06/12 [History] [place]-3 Fatty Acids [[place]-3] 1,000 mg PO BID 12/06/12 [History] Omeprazole [Prilosec] 40 mg PO BID 12/06/12 [History] Tamsulosin [Flomax] 0.4 mg PO DAILY 12/06/12 [History] Cholecalciferol (Vitamin D3) [Vitamin D3] 1,000 unit PO DAILY 05/04/14 [History] Dutasteride [Avodart] 0.5 mg PO BEDTIME 05/04/14 [History] Multivitamin [Multi-Vitamin Daily] 1 tab PO DAILY 05/04/14 [History] Vitamin B Complex [B-100 Complex] 100 mg PO DAILY 05/10/14 [History] Magnesium Oxide 600 mg PO DAILY #30 tablet 05/20/14 [Rx] Cyanocobalamin (Vitamin B-12) [Vitamin B-12] 1,000 mcg PO DAILY 06/05/15 [ History] Minocycline HCl 1 tab PO DAILY 04/26/16 [History] Past Medical History HEENT History: Reports: Cataract, Hard of Hearing, Impaired Vision Cardiovascular History: Reports: Aneurysm, Hypertension, Pacemaker Respiratory History: Reports: Asthma, Pneumonia, Recurrent, Sleep Apnea Gastrointestinal History: Reports: Bowel Obstruction, Diverticulosis, Gastritis , GI Bleed, Hemorrhoids, Hiatal Hernia, Other (See Below) Other Gastrointestinal History: hernia Genitourinary History: Reports: Prostate Disorder, Renal Calculus Musculoskeletal History: Reports: Back Pain, Chronic, Fracture, Osteoarthritis Neurological History: Reports: Concussion, Vertigo Other Neuro History: syncope Psychiatric History: Reports: Anxiety, Depression Endocrine/Metabolic History: Reports: Vitamin D Deficiency Hematologic History: Reports: Anemia, B12 Deficiency, Blood Transfusion(s), Iron Deficiency Dermatologic History: Reports: Other (See Below) Other Dermatologic History: rosecea - Infectious Disease History Infectious Disease History: Reports: Chicken Pox, Measles Other Infectious Disease History: pt cant remember - Past Surgical History HEENT Surgical History: Reports: Oral Surgery GI Surgical History: Reports: Appendectomy, Bariatric Procedure, Colonoscopy, Hernia Repair/Other, Small Bowel Male Surgical History: Reports: Kidney Stone Extraction, TURP-Transurethral Resection of Prostate Social & Family History - Family History Cardiac: Reports: Hypertension, [place] Musculoskeletal: Reports: Arthritis, Fibromyalgia Psychiatric: Reports: Anxiety, Depression Dermatologic: Reports: Other (See Below) Other Dermatologic Family History: rosacea Oncologic: Reports: Bone, Liver, Metastatic, Skin - Tobacco Use Smoking Status *Q: Never Smoker Years of Tobacco use: 20 Packs/Tins Daily: 3 Used Tobacco, but Quit: Yes Month Tobacco Last Used: july Second Hand Smoke Exposure: No - Caffeine Use Caffeine Use: Reports: Coffee Caffeine Use Comment: 1.5 cups/day - Alcohol Use Days Per Week of Alcohol Use: 7 Number of Drinks Per Day: 2 Total Drinks Per Week: 14 - Recreational Drug Use Recreational Drug Use: No ED ROS GENERAL - Review of Systems Review Of Systems: See Below Constitutional: Reports: Malaise. Denies: Fever, Chills Respiratory: Denies: Shortness of Breath Cardiovascular: Denies: Chest Pain GI/Abdominal: Reports: Abdominal Pain, Nausea Skin: Reports: No Symptoms Neurological: Denies: Headache Psychiatric: Reports: No Symptoms ED EXAM, GI/ABD - Physical Exam Exam: See Below Exam Limited By: No Limitations General Appearance: Alert, Mild Distress (Patient is fairly uncomfortable) Eyes: Bilateral: Normal Appearance (No jaundice) Respiratory/Chest: No Respiratory Distress, Lungs Clear Cardiovascular: Regular Rate, Rhythm GI/Abdominal Exam: Normal Bowel Sounds, Tender (Very tender to palpation across the upper abdomen with some mild guarding) Neurological: Alert, Oriented Psychiatric: Normal Affect, Normal Mood Skin Exam: Warm, Dry Course - Vital Signs Last Recorded V/S: Last Vital Signs Temp 97.4 F 02/19/17 20:12 Pulse 73 02/19/17 21:50 Resp 16 02/19/17 21:50 BP 142/92 H 02/19/17 21:50 Pulse Ox 95 02/19/17 21:50 - Orders/Labs/Meds Orders: Active Orders 24 hr Category Date Time Status Abdomen Pelvis w Cont [CT] Stat Exams 02/19/17 20:46 Taken Labs: Laboratory Tests 02/19/17 02/19/17 Range/Units 19:46 19:46 WBC 15.3 H (4.5-11.0) K/uL RBC 4.56 (4.30-5.90) M/uL Hgb 13.9 (12.0-15.0) g/dL Hct 41.4 (40.0-54.0) % MCV 91 (80-98) fL MCH 31 (27-31) pg MCHC 34 (32-36) % Plt Count 385 (150-400) K/uL Neut % (Auto) 81 H (36-66) % Lymph % (Auto) 14 L (24-44) % [place] % (Auto) 5 (2-6) % Eos % (Auto) 1 L (2-4) % Baso % (Auto) 0 (0-1) % Sodium 138 L (140-148) mmol/L Potassium 4.1 (3.6-5.2) mmol/L Chloride 105 (100-108) mmol/L Carbon Dioxide 26 (21-32) mmol/L Anion Gap 11.1 (5.0-14.0) mmol/L BUN 26 H (7-18) mg/dL Creatinine 1.3 (0.8-1.3) mg/dL Est Cr Clr Drug Dosing 36.17 mL/min Estimated GFR (MDRD) 53 L (>60) Glucose 117 H (74-106) mg/dL Calcium 9.2 (8.5-10.1) mg/dL Total Bilirubin 0.4 (0.2-1.0) mg/dL AST 19 (15-37) U/L ALT 22 (12-78) U/L Alkaline Phosphatase 88 (46-116) U/L Total Protein 7.1 (6.4-8.2) g/dL Albumin 3.2 L (3.4-5.0) g/dL Globulin 3.9 H (2.3-3.5) g/dL Albumin/Globulin Ratio 0.8 L (1.2-2.2) Amylase 74 (25-115) U/L Lipase 131 (73-393) U/L Meds: Medications Discontinued Medications Generic Name Dose Route Start Last Admin Trade Name Freq PRN Reason Stop Dose Admin Hydromorphone HCl 0.5 mg 02/19/17 19:46 02/19/17 20:06 Dilaudid IVPUSH 02/19/17 19:47 0.5 mg ONETIME ONE Administration Sodium Chloride 1,000 mls @ 500 mls/hr 02/19/17 20:00 02/19/17 20:03 Normal Saline IV 500 mls/hr ASDIRECTED DENISSE Administration Sodium Chloride 80 mls @ 3 mls/sec 02/19/17 21:00 02/19/17 21:07 Normal Saline IV 3 mls/sec ASDIRECTED DENISSE Administration Iopamidol 100 ml 02/19/17 21:00 02/19/17 21:07 Isovue-300 (61%) IV 100 ml . DIRECTED DENISSE Administration Ondansetron HCl 4 mg 02/19/17 19:46 02/19/17 20:03 Zofran IVPUSH 02/19/17 19:47 4 mg ONETIME ONE Administration Sodium Chloride 10 ml 02/19/17 20:51 02/19/17 21:04 Saline Flush FLUSH 10 ml ASDIRECTED PRN Administration Keep Vein Open - Re-Assessments/Exams Free Text/Narrative Re-Assessment/Exam: 02/19/17 20:21 An IV was started, the patient was given 0.5 mg of Dilaudid and 4 mg of IV Zofran. CBC, CMP, amylase and lipase were obtained with the intention of getting a CT scan after labs return. 02/19/17 22:30 White count was normal, electrolytes normal. CT scan did show a small bowel obstruction, at least partial. Patient's symptoms had almost resolved and after discussing his condition with Dr. Blank he wanted to try to go home on a low residue diet and recheck in 5 days. He will return if worsening such as persistent nausea or vomiting or increased pain. Departure - Departure Time of Disposition: 22:54 Disposition: Home, Self-Care 01 Condition: Fair Clinical Impression: Small bowel obstruction Abdominal pain Qualifiers: Abdominal location: upper abdomen, unspecified Qualified Code(s): R10.10 - Upper abdominal pain, unspecified - Discharge Information Instructions: Abdominal Pain, Adult, [id number] Referrals: Gumaro Park MD [Primary Care Provider] - Forms: ED Department Discharge Care Plan Goals: Clear liquids and low residue diet only for the next several days. Recheck with Dr. Blank next Wednesday unless not improving satisfactorily or worsening return to the emergency room for reevaluation. - My Orders Last 24 Hours: My Active Orders 02/19/17 20:46 Abdomen Pelvis w Cont [CT] Stat - Assessment/Plan Last 24 Hours: My Active Orders 02/19/17 20:46 Abdomen Pelvis w Cont [CT] Stat
[2017-02-19] MEDS ORDERED: Sodium Chloride 0.9% 1,000 ML IV SCH (20:00)
[2017-02-19] MEDS ORDERED: Sodium Chloride 0.9% 10 ML Syringe FLUSH PRN (20:51)
[2017-02-19] MEDS ORDERED: Sodium Chloride 0.9% 80 ML IV SCH (21:00)
[2017-02-19] MEDS ORDERED: Iopamidol 612 MG/ML 100 ML Bottle IV SCH (21:00)
[2017-02-19 21:50] VITALS: BP 142/92
== END 2017-02-19 22:57 | disposition home or self-care (01) ==
LOC: JP.ED 18:28
DX: K56.609 Unspecified intestinal obstruction, unspecified as to partial versus complete obstruction (principal); I10 Essential (primary) hypertension; J45.909 Unspecified asthma, uncomplicated; Z79.899 Other long term (current) drug therapy
CPT/HCPCS: 36415; 74177; 80053; 82150; 83690; 85025; 96361; 96374; 96375; 99284; J1170; J2405; J7030; J7040; J7050; Q9967; 99285

== ENCOUNTER 2017-03-08 08:34 | Inpatient (IN) | payer MEDICARE, BC ==
[~2017-03-08 08:34] MED LIST: Acetaminophen 500 MG Tab PO ONE
[2017-03-08] MEDS ORDERED: Succinylcholine 200 MG/10 ML MDV ONE (09:17)
[2017-03-08] MEDS ORDERED: Dexamethasone 4 MG/ML SDV ONE (09:17)
[2017-03-08] MEDS ORDERED: Glycopyrrolate 0.2 MG/ML 5 ML MDV ONE (09:17)
[2017-03-08] MEDS ORDERED: Rocuronium 50 MG/5 ML Vial ONE ×2 (09:17→13:00)
[2017-03-08] MEDS ORDERED: Neostigmine Methylsulfate 1 MG/ML 5 ML Syringe ONE (09:17)
[2017-03-08] MEDS ORDERED: Propofol 200 MG/20 ML SDV ONE (09:17)
[2017-03-08] MEDS ORDERED: Ondansetron 4 MG/2 ML SDV ONE (09:17)
[2017-03-08] MEDS ORDERED: Dextrose 5%-Lactated Ringers 1,000 ML IV SCH (09:30)
[2017-03-08] MEDS ORDERED: Ropivacaine 40 ML, Dexamethasone 8 MG, EPINEPHrine 0.4 MG, Sodium Chloride 0.9% 37.6 ML NERVRT ONE ×4 (10:00)
[2017-03-08] MEDS ORDERED: Ketamine 500 MG/5 ML MDV IV ONE (10:00)
[2017-03-08] MEDS ORDERED: Lidocaine 2% 100 MG/5 ML Syringe IVPUSH ONE (10:00)
[2017-03-08] MEDS ORDERED: cefOXitin 2 GM in Premix Bag 1 BAG IV ONE (10:00)
[2017-03-08] MEDS ORDERED: Meropenem 500 MG SDV ONE (10:14)
[2017-03-08] MEDS ORDERED: Lactated Ringers 1,000 ML ONE (13:22)
[2017-03-08] MEDS ORDERED: hydrOXYzine HCl 100 MG/2 ML SDV IM ONE (14:19)
[2017-03-08] MEDS ORDERED: Lidocaine 1% 2 ML ONE (14:22)
[2017-03-08] MEDS ORDERED: Naloxone 0.4 MG/ML SDV IV PRN (15:14)
[2017-03-08] MEDS ORDERED: HYDROmorphone/Normal Saline 15 MG/30 ML PCA IV PRN (15:14)
[2017-03-08] MEDS: Ondansetron 4 MG/2 ML SDV IV PRN ×2 (15:16→22:09)
[2017-03-08] MEDS ORDERED: hydrOXYzine HCl 100 MG/2 ML SDV IM PRN (15:16)
[2017-03-08] MEDS ORDERED: hydrOXYzine HCl 25 MG Tab PO PRN (15:18)
[2017-03-08] MEDS: Lidocaine 0.4%/D5W 2 GM/500 ML BAG IV SCH (15:20)
[2017-03-08] MEDS: Dextrose 5%-Lactated Ringers 1,000 ML IV SCH (17:28)
[2017-03-08] MEDS: Pantoprazole 40 MG Vial IV SCH (17:34)
[2017-03-08] MEDS: ceFAZolin 2 GM in Sodium Chloride 0.9% 50 ML IV SCH (17:35)
[2017-03-08] MEDS ORDERED: Cyanocobalamin (Vitamin B12) 1,000 MCG/ML SDV IM ONE (18:00)
[2017-03-08] MEDS: Tamsulosin 0.4 MG Cap.ER PO SCH (20:32)
[2017-03-08] MEDS ORDERED: Zolpidem 5 MG Tab PO PRN (20:45)
[2017-03-09] MEDS: ceFAZolin 2 GM in Sodium Chloride 0.9% 50 ML IV SCH ×2 (02:57→10:12)
[2017-03-09] MEDS: Lidocaine 0.4%/D5W 2 GM/500 ML BAG IV SCH (02:57)
[2017-03-09] MEDS ORDERED: Iohexol 647 MG/ML 50 ML SDV PO STA (03:54)
[2017-03-09] MEDS ORDERED: Scopolamine 1.5 MG Transdermal Patch TRDERM SCH (08:00)
[2017-03-09] MEDS: Dextrose 5%-Lactated Ringers 1,000 ML IV SCH ×2 (08:46→15:52)
--- NOTE | 2017-03-09 08:46 | CR ---
UGI wo KUB HISTORY: Prior gastric bypass. Revision of distal anastomosis. COMPARISON: CT scan 02/19/2017. FINDINGS: KUB images demonstrate contrast within the gastric remnant as well as the small bowel. Ther e is no obstruction no extravasation seen. No evidence for complication.
[2017-03-09] MEDS: FLUoxetine 20 MG Cap PO SCH (08:49)
[2017-03-09] MEDS ORDERED: DUTASTERIDE 0.5MG CAP PO SCH (09:00)
[2017-03-09] MEDS ORDERED: SCOPOLAMINE PATCH CHECK TOP SCH (09:00)
[2017-03-09] MEDS: Ondansetron 4 MG/2 ML SDV IV PRN (10:55)
[2017-03-09] MEDS: Magnesium Sulfate/Water 2 GM in Premix Bag 1 BAG IV SCH ×2 (12:32→17:11)
[2017-03-09] MEDS: Pantoprazole 40 MG Vial IV SCH (17:08)
[2017-03-09] MEDS: Tamsulosin 0.4 MG Cap.ER PO SCH (20:41)
[2017-03-09] MEDS ORDERED: DUTASTERIDE 0.5 MG PO SCH (21:00)
[2017-03-10] MEDS: Magnesium Sulfate/Water 2 GM in Premix Bag 1 BAG IV SCH ×2 (00:05→05:46)
[2017-03-10] MEDS: Dextrose 5%-Lactated Ringers 1,000 ML IV SCH (01:58)
[2017-03-10 07:53] VITALS: BP 107/83
[2017-03-10] MEDS ORDERED: HYDROmorphone 2 MG Tab PO PRN (08:17)
[2017-03-10] MEDS ORDERED: Magnesium Oxide 400 MG Tab PO SCH (09:00)
[2017-03-10] MEDS: FLUoxetine 20 MG Cap PO SCH (09:39)
[2017-03-10] MEDS ORDERED: DUTASTERIDE 0.5MG CAP PO SCH (21:00)
--- NOTE | 2017-03-10 23:09 | DISCH ---
ADMISSION DIAGNOSES: Partial small bowel obstruction, SP Farooq-en-Y gastric bypass surgery, unspecified surgical malabsorption, B12 deficiency, hard of hearing, history of aneurysm, hypertension, history of pacemaker, diverticulosis, history of gastrointestinal bleed, prostate disorder, renal calculus, chronic back pain, anxiety/depression, vitamin D deficiency, and rosacea. DISCHARGE DIAGNOSES: Exploratory laparotomy with lysis of extensive adhesions, 90 minutes; repair of recurrent incarcerated incisional hernia and placement of Vicryl mesh to prevent recurrent adhesion formation for partial small bowel obstruction secondary to extensive intraabdominal adhesions and recurrent incarcerated incisional hernia. DATE OF SURGERY: 03/08/2017. HISTORY: Remington Palacio is a 76-year-old male with history of postprandial abdominal pain. After preoperative evaluation and discussion of possible risks and possible complications, he wished to proceed with surgical procedure. HOSPITAL COURSE: Remington had surgery on 03/08/2017. He had no operative complications. On postop day #1, he was advanced to step 2, then step 3 gastric bypass diet. He was changed to oral pain medicine. Vital signs remained stable. His activity was good, pain controlled, and he was able to be discharged to home on postop day #2. PHYSICAL EXAMINATION: GENERAL: Remington Palacio is a 76-year-old male. VITAL SIGNS: Height is 5 feet and 4.96 inches, weight is 172 pounds. TPR is 98.3, 61, and 18. Blood pressure 107/83. HEENT: Negative. NECK: Supple. HEART: Regular rate and rhythm. LUNGS: Clear. ABDOMEN: Linnea in place. Incision looks good. Abdominal binder is on. EXTREMITIES: Without peripheral edema. DISPOSITION: Discharged to home. CONDITION: Stable and improving. FOLLOWUP APPOINTMENT: Francesca Eastman PA-C, at [facility] on 03/19/2017 at 10:15 a.m. MEDICATIONS: Home medications: 1. Dilaudid 2 mg, 1 to 2, every 4 hours p.r.n. for pain, #40. 2. Magnesium oxide 400 mg orally daily, #100. 3. Scopolamine patch 1.5 mg, to remove on 03/13/2017. Resume home medications: 1. Calcium 1 daily. 2. Vitamin D3, 1000 international units daily. 3. Vitamin B12, 1000 mcg orally daily. 4. Avodart 0.5 mg orally at bedtime. 5. Fluoxetine 20 mg orally daily. 6. Ferrous sulfate 325 mg orally twice daily. 7. Magnesium oxide 400 mg orally daily. 8. Minocycline 1 tablet daily. 9. Multivitamin 1 tablet orally daily. 10.[place]-3, 1000 mg orally twice daily. 11.Prilosec 40 mg orally twice daily. 12.Flomax 0.4 mg. 13.Vitamin B complex 1 daily. DIET: Step 4 gastric bypass diet. Drink 8 to 10 glasses of water a day. ACTIVITY: No lifting greater than 10 pounds for 6 weeks[address]riving, do not drive on pain medication. May shower. Keep the operative site clean and dry. Wear abdominal binder for 6 weeks and then as tolerated. Notify provider if any fever, increased pain, nausea, or vomiting. Use incentive spirometer 10 times every hour while awake for 1 week.
--- NOTE | 2017-03-13 14:04 | OR ---
DATE OF PROCEDURE: 03/08/2017 PREOPERATIVE DIAGNOSIS: Partial small bowel obstruction. POSTOPERATIVE DIAGNOSES: 1. Partial small bowel secondary to extensive intraabdominal adhesions. 2. Incarcerated recurrent incisional hernia. OPERATIVE PROCEDURE: Exploratory laparotomy with: 1. Lysis of extensive adhesions (95 minutes) (27558-61). 2. Repair of recurrent incarcerated incisional hernia (14348). 3. Placement of Vicryl mesh to limit recurrent adhesion formation ([id number]). ANESTHESIA: General. PARADI OPERATOR: Francesca Eastman PA-C and AWAIS Damon3. INDICATIONS FOR PROCEDURE: The patient presents with frequent episodes of partial small bowel obstruction as well as more or less daily abdominal discomfort and burping. The plan is to proceed with an exploratory laparotomy and lysis of adhesions with small bowel resection as indicated. Potential risks including bleeding, infection, injury to underlying viscera, problems with leaks from any GI tract closures, the likelihood that the adhesions will reform and potentially result in additional episodes of obstruction were gone over along with the remote possibility of cardiopulmonary, septic, or hemorrhagic complications leading to and the patient wishes to proceed. DETAILS OF PROCEDURE: The patient was taken to the operating room, and after general endotracheal anesthesia was induced, a Gardner catheter was inserted. Using ultrasound guidance, bilateral transversus abdominis plane blocks were placed. These were placed more or less in the mid abdomen as I think the patient's incision was more or less . Once these were completed, using standard solution, the abdomen was prepped and draped. The previous midline incision was then reused and carried down through the skin and subcutaneous tissue. The patient was noted to have a recurrence of the incisional hernia with some incarcerated omentum within it, just above the previous mesh. This was reduced and the midline fascia including the mesh was then divided. Once the peritoneal cavity was entered, a quite extensive adhesiolysis was initiated. This was worked up over 90 minutes. Eventually, the entire length of the small bowel was satisfactory, was free of any adhesions. There appeared to be a point of obstruction, probably in the region of the jejunojejunostomy with a recent CT scan. This area was fairly dilated. Once the adhesions were completed, it was felt that no areas of bowel resection would be required. The abdomen was irrigated with meropenem-containing saline solution to limit recurrent adhesion formation and the Vicryl mesh was placed down in the urinary bladder up along the pelvic sidewalls and up against the abdominal wall. Initially, the previously divided Parietex mesh was closed with a running #1 Prolene stitch. Over this, the fascia was then closed, which included repair of the incisional hernia on this more superior aspect of the incision and the subcutaneous tissue was approximated with some 3-0 Vicryl stitch and the skin with julissa. The patient was taken to the recovery room in satisfactory condition. Physician yard assistant, Francesca Eastman, played an essential role in assisting in this case, helping to position the patient, retract structures as needed, as well as suturing and stapling when indicated. Her presence improved the patient safety and decreased operative time. Dhaval Blank MD /[id number]
--- NOTE | 2017-03-17 15:56 | PN ---
DATE OF SERVICE: 03/09/2017 Mr. Palacio has done well status post repair of the incisional hernia along with extensive lysis of adhesions yesterday. Upper GI x-ray looks good this morning. We will advance his diet and, later in the day, switch over to oral pain medication. He may be ready for discharge home tomorrow. Dhaval Blank MD /[id number]
== END 2017-03-10 09:50 | disposition home or self-care (01) | DRG 336 ==
LOC: JP.SDS 08:34 → JP.SDSSCHI 08:34 → EDSTATUS 11:00 → JP.2SS 14:45
PROVIDERS: ADMIT Surgery; ATTEND Surgery
PROC: 0WQF0ZZ Repair Abdominal Wall, Open Approach (ICD-10-PCS; principal; 2017-03-08)
PROC: 0DN80ZZ Release Small Intestine, Open Approach (ICD-10-PCS; 2017-03-08)
PROC: 3E0M05Z Introduction of Adhesion Barrier into Peritoneal Cavity, Open Approach (ICD-10-PCS; 2017-03-08)
PROC: 3E0T3BZ Introduction of Anesthetic Agent into Peripheral Nerves and Plexi, Percutaneous Approach (ICD-10-PCS; 2017-03-08)
DX: K56.51 Intestinal adhesions [bands], with partial obstruction (principal); K43.0 Incisional hernia with obstruction, without gangrene; I10 Essential (primary) hypertension; F32.9 Major depressive disorder, single episode, unspecified; F41.9 Anxiety disorder, unspecified; Z98.84 Bariatric surgery status; Z98.0 Intestinal bypass and anastomosis status; E53.8 Deficiency of other specified B group vitamins; E55.9 Vitamin D deficiency, unspecified; M19.90 Unspecified osteoarthritis, unspecified site; M54.9 Dorsalgia, unspecified; G89.29 Other chronic pain; Z87.01 Personal history of pneumonia (recurrent); Z95.0 Presence of cardiac pacemaker; H54.7 Unspecified visual loss; H91.90 Unspecified hearing loss, unspecified ear; Z87.891 Personal history of nicotine dependence
CPT/HCPCS: 36415; 74240; 74240-26; 80053; 82728; 83735; 83880; 84100; 85027; 93005; 94762; A9270-GY; C1781; C9113; J0171; J0330; J0690; J0694; J1100; J1170; J2001; J2185; J2405; J2704; J2710; J2795; J3010; J3420; J3475; J7030; J7042; J7050; J7120; Q9967

== ENCOUNTER 2019-02-17 21:09 | Emergency (ER) | payer MEDICARE, BC ==
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
[2019-02-17] MEDS ORDERED: Sodium Chloride 0.9% 1,000 ML IV SCH (22:00)
[2019-02-17] MEDS ORDERED: Sodium Chloride 0.9% 10 ML Syringe FLUSH ONE (22:01)
[2019-02-17] MEDS ORDERED: Iopamidol 612 MG/ML 100 ML Bottle IV SCH (22:15)
[2019-02-17] MEDS ORDERED: Sodium Chloride 0.9% 75 ML IV SCH (22:15)
[2019-02-17] MEDS: Sodium Chloride 0.9% 10 ML Syringe FLUSH PRN ×2 (22:21→22:46)
--- NOTE | 2019-02-17 22:30 | CRLCT ---
INDICATION: Amnesia after loss of consciousness TECHNIQUE: Head CT without contrast. COMPARISON: None FINDINGS: CSF spaces: Within normal limits for age. Brain parenchyma: There are nonspecific low attenuation white matter changes consistent with chronic microvascular disease. No sign of mass, hemorrhage, or midline shift. Skull base and calvarium: The visualized paranasal sinuses and mastoid air cells demonstrate no acute or significant findings. The visualized orbits are grossly unremarkable. No skull fractures. There is intracranial atherosclerosis. IMPRESSION: 1. No acute findings. 2. Nonspecific white matter disease, typical of chronic microvascular disease. Please note that all CT scans at this facility use dose modulation, iterative reconstruction, and/or weight-based dosing when appropriate to reduce radiation dose to as low as reasonably achievable. Dictated by Sylvie Pedroza MD @ Feb 17 2019 10:24PM Signed by Dr. Sylvie Pedroza @ Feb 17 2019 10:27PM
[2019-02-17 22:31] VITALS: BP 122/86; PULSE 70
[2019-02-17] MEDS ORDERED: Ketorolac 30 MG/ML SDV IVPUSH ONE (23:28)
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
== END 2019-02-18 00:17 | disposition home or self-care (01) ==
LOC: JP.ED 21:09
DX: S22.31XA Fracture of one rib, right side, initial encounter for closed fracture (principal); I10 Essential (primary) hypertension; J45.909 Unspecified asthma, uncomplicated; M19.90 Unspecified osteoarthritis, unspecified site; F41.9 Anxiety disorder, unspecified; F32.9 Major depressive disorder, single episode, unspecified; D64.9 Anemia, unspecified; Z79.899 Other long term (current) drug therapy; V86.52XA Driver of snowmobile injured in nontraffic accident, initial encounter
CPT/HCPCS: 36415; 70450; 71260; 80048; 85025; 96360; 99284; 99285; J1885; J7030; J7050; Q9967

== ENCOUNTER 2019-02-20 13:22 | Emergency (ER) | payer MEDICARE, BC ==
[2019-02-20 13:42] VITALS: BP 152/90; PULSE 78
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
== END 2019-02-20 14:25 | disposition home or self-care (01) ==
LOC: JP.ED 13:22
DX: R07.9 Chest pain, unspecified (principal); I10 Essential (primary) hypertension; J45.909 Unspecified asthma, uncomplicated; F32.9 Major depressive disorder, single episode, unspecified; Z79.899 Other long term (current) drug therapy
CPT/HCPCS: 99283

== ENCOUNTER 2020-10-02 12:44 | Emergency (ER) | payer MEDICARE, BC ==
--- NOTE | 2020-10-02 13:30 | EDM.PDOC ---
ED HPI GENERAL MEDICAL PROBLEM - General Chief Complaint: Chest Pain Stated Complaint: FROM CLINIC PAIN IN CHEST AREA Time Seen by Provider: 10/02/20 13:20 Source of Information: Reports: Patient, Family - History of Present Illness INITIAL COMMENTS - FREE TEXT/NARRATIVE: 80-year-old male with a history of a pacemaker comes now because he has had intermittent left lower anterior chest pain for the last month but lasted several hours today without diaphoresis or shortness of breath nausea or vomiting or any bowel changes. No trauma but he is exposed to heavy equipment and noise and is lost hearing as a result. He has no other specific system complaints today. He was just concerned because he has a pacemaker to cardiac history and he should have it checked out - Related Data Allergies Allergy/AdvReac Type Severity Reaction Status Date / Time No Known Allergies Allergy Verified 10/02/20 13:23 Home Meds: Home Meds Calcium Citrate/Vitamin D3 [Calcium Citrate - Vit D3 Tab] 1 each PO BID 12/06/12 [History] Ferrous Sulfate [Iron] 325 mg PO DAILY 12/06/12 [History] Vitamin B Complex [B-100 Complex] 100 mg PO DAILY 05/10/14 [History] Cyanocobalamin (Vitamin B-12) [Vitamin B-12] 1,000 mcg PO DAILY 06/05/15 [History] Omeprazole 40 mg PO DAILY #30 cap.sr 02/09/18 [Rx] Cholecalciferol (Vitamin D3) [Vitamin D3] 1,000 unit PO DAILY 02/20/19 [History] FLUoxetine HCl [Prozac] 20 mg PO DAILY 02/20/19 [History] Multivit-Min/FA/Lycopen/Lutein [Centrum Silver Ultra Men's] 1 tab PO DAILY 02/20/19 [History] L.acidoph,Paracasei, B.lactis [Probiotic] 1 each PO DAILY 09/12/19 [History] Magnesium Glycinate [Magnesium Bisglycinate Chelate] 500 gm MC BID 09/12/19 [History] Melatonin 5 mg PO BEDTIME 09/12/19 [History] Warfarin [Coumadin] 5 mg PO DAILY 10/02/20 [History] Past Medical History HEENT History: Reports: Cataract, Hard of Hearing, Impaired Vision Cardiovascular History: Reports: Aneurysm, Hypertension, Pacemaker Respiratory History: Reports: Asthma, Pneumonia, Recurrent, Sleep Apnea Gastrointestinal History: Reports: Bowel Obstruction, Diverticulosis, Gastritis, GI Bleed, Hemorrhoids, Hiatal Hernia, Other (See Below) Other Gastrointestinal History: hernia, abdominal aorta aneurysm. Genitourinary History: Reports: Prostate Disorder, Renal Calculus Musculoskeletal History: Reports: Back Pain, Chronic, Fracture, Osteoarthritis Neurological History: Reports: Concussion, Vertigo Other Neuro History: syncope Psychiatric History: Reports: Anxiety, Depression Endocrine/Metabolic History: Reports: Vitamin D Deficiency Hematologic History: Reports: Anemia, B12 Deficiency, Blood Transfusion(s), Iron Deficiency Dermatologic History: Reports: Other (See Below) Other Dermatologic History: rosecea - Infectious Disease History Infectious Disease History: Reports: Chicken Pox, Measles, Mumps Other Infectious Disease History: pt cant remember - Past Surgical History HEENT Surgical History: Reports: Oral Surgery Cardiovascular Surgical History: Reports: Pacer GI Surgical History: Reports: Appendectomy, Bariatric Procedure, Colonoscopy, Hernia Repair/Other, Small Bowel Male Surgical History: Reports: Kidney Stone Extraction, TURP-Transurethral Resection of Prostate Social & Family History - Family History Family Medical History: No Pertinent Family History Cardiac: Reports: Hypertension, [place] Musculoskeletal: Reports: Arthritis, Fibromyalgia Psychiatric: Reports: Anxiety, Depression Dermatologic: Reports: Other (See Below) Other Dermatologic Family History: rosacea Oncologic: Reports: Bone, Liver, Metastatic, Skin - Caffeine Use Caffeine Use: Reports: Coffee Caffeine Use Comment: 1.5 cups/day - Living Situation & Occupation Living situation: Reports: Occupation: Retired (lives with , has 4 daughter and 2 sons, 14 grandchildren.) ED ROS GENERAL - Review of Systems Review Of Systems: Comprehensive ROS is negative, except as noted in HPI. 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 He has had intermittent pain in his chest persistently now almost daily for the last month and has a pacemaker and comes for evaluation because of it. He is lying comfortably on the gurney does not appear to be in great distress HEENT shows eyes ears nose throat appear to be normal finger scratch hearing is diminished. Mouth and throat otherwise normal neck is supple normal range of motion no JVD Chest is clear with a regular rate and rhythm with no abnormal sounds heard Abdomen soft active bowel sounds and nontender Extremities no deformity or edema Skin is normal without rash No musculoskeletal abnormalities are noted Neurologic physiologic urine tone Exam Limited By: No Limitations Course - Vital Signs Text/Narrative:: Work-up in the department is basically negative and patient is discharged feeling well without discomfort Last Recorded V/S: Last Vital Signs Temp 36.1 C 10/02/20 13:37 Pulse 70 10/02/20 13:37 Resp 15 10/02/20 13:37 BP 146/98 H 10/02/20 13:37 Pulse Ox 95 10/02/20 13:37 - Orders/Labs/Meds Orders: Active Orders 24 hr Category Date Time Status EKG Documentation Completion [RC] ASDIRECTED Care 10/02/20 13:26 Active Chest 1V Frontal [CR] Stat Exams 10/02/20 13:25 Taken EKG 12 Lead [EK] Stat Ther 10/02/20 13:25 Ordered Labs: Laboratory Tests 10/02/20 10/02/20 10/02/20 Range/Units 13:36 13:36 13:36 WBC 8.3 (4.5-11.0) K/uL RBC 4.47 (4.30-5.90) M/uL Hgb 13.8 (12.0-15.0) g/dL Hct 41.0 (40.0-54.0) % MCV 92 (80-98) fL MCH 31 (27-31) pg MCHC 34 (32-36) % Plt Count 241 (150-400) K/uL PT 15.5 H (9.5-12.0) sec INR 1.43 H (0.80-1.20) Sodium 140 (140-148) mmol/L Potassium 4.0 (3.6-5.2) mmol/L Chloride 104 (100-108) mmol/L Carbon Dioxide 28 (21-32) mmol/L Anion Gap 7.8 (5.0-14.0) mmol/L BUN 19 H (7-18) mg/dL Creatinine 1.1 (0.8-1.3) mg/dL Est Cr Clr Drug Dosing 43.35 mL/min Estimated GFR (MDRD) > 60 (>60) Glucose 95 (74-106) mg/dL Calcium 8.5 (8.5-10.1) mg/dL Total Bilirubin 0.5 (0.2-1.0) mg/dL AST 22 (15-37) U/L ALT 24 (12-78) U/L Alkaline Phosphatase 84 (46-116) U/L Troponin I < 0.017 (0.000-0.056) ng/mL Total Protein 6.2 L (6.4-8.2) g/dL Albumin 3.1 L (3.4-5.0) g/dL Globulin 3.1 (2.3-3.5) g/dL Albumin/Globulin Ratio 1.0 L (1.2-2.2) Urine Color (YELLOW) Urine Appearance (CLEAR) Urine pH (5.0-8.0) Ur Specific [place] (1.008-1.030) Urine Protein (NEGATIVE) mg/dL Urine Glucose (UA) (NEGATIVE) mg/dL Urine Ketones (NEGATIVE) mg/dL Urine Occult Blood (NEGATIVE) Urine Nitrite (NEGATIVE) Urine Bilirubin (NEGATIVE) Urine Urobilinogen (0.2-1.0) EU/dL Ur Leukocyte Esterase (NEGATIVE) Urine RBC (0-5) Urine WBC (0-5) Ur Epithelial Cells Amorphous Sediment Urine Bacteria Urine Mucus 10/02/20 Range/Units 13:49 WBC (4.5-11.0) K/uL RBC (4.30-5.90) M/uL Hgb (12.0-15.0) g/dL Hct (40.0-54.0) % MCV (80-98) fL MCH (27-31) pg MCHC (32-36) % Plt Count (150-400) K/uL PT (9.5-12.0) sec INR (0.80-1.20) Sodium (140-148) mmol/L Potassium (3.6-5.2) mmol/L Chloride (100-108) mmol/L Carbon Dioxide (21-32) mmol/L Anion Gap (5.0-14.0) mmol/L BUN (7-18) mg/dL Creatinine (0.8-1.3) mg/dL Est Cr Clr Drug Dosing mL/min Estimated GFR (MDRD) (>60) Glucose (74-106) mg/dL Calcium (8.5-10.1) mg/dL Total Bilirubin (0.2-1.0) mg/dL AST (15-37) U/L ALT (12-78) U/L Alkaline Phosphatase (46-116) U/L Troponin I (0.000-0.056) ng/mL Total Protein (6.4-8.2) g/dL Albumin (3.4-5.0) g/dL Globulin (2.3-3.5) g/dL Albumin/Globulin Ratio (1.2-2.2) Urine Color Yellow (YELLOW) Urine Appearance Clear (CLEAR) Urine pH 5.0 (5.0-8.0) Ur Specific [place] 1.025 (1.008-1.030) Urine Protein Negative (NEGATIVE) mg/dL Urine Glucose (UA) Negative (NEGATIVE) mg/dL Urine Ketones Trace H (NEGATIVE) mg/dL Urine Occult Blood Negative (NEGATIVE) Urine Nitrite Negative (NEGATIVE) Urine Bilirubin Negative (NEGATIVE) Urine Urobilinogen 0.2 (0.2-1.0) EU/dL Ur Leukocyte Esterase Negative (NEGATIVE) Urine RBC 0-5 (0-5) Urine WBC Not seen (0-5) Ur Epithelial Cells Not seen Amorphous Sediment Rare Urine Bacteria Rare Urine Mucus Rare Departure - Departure Time of Disposition: 14:30 Disposition: Home, Self-Care 01 Condition: Good Clinical Impression: Chest pain Referrals: Gumaro Park MD [Primary Care Provider] - Forms: ED Department Discharge Sepsis Event Note (ED) - Focused Exam Vital Signs: Vital Signs Temp Pulse Resp BP Pulse Ox 10/02/20 13:37 36.1 C 70 15 146/98 H 95 10/02/20 13:09 36.1 C 78 15 157/99 H 95 - My Orders Last 24 Hours: My Active Orders 10/02/20 13:25 Chest 1V Frontal [CR] Stat EKG 12 Lead [EK] Stat 10/02/20 13:26 EKG Documentation Completion [RC] ASDIRECTED - Assessment/Plan Last 24 Hours: My Active Orders 10/02/20 13:25 Chest 1V Frontal [CR] Stat EKG 12 Lead [EK] Stat 10/02/20 13:26 EKG Documentation Completion [RC] ASDIRECTED
[2020-10-02 13:38] VITALS: BP 146/98; PULSE 70
--- NOTE | 2020-10-02 14:29 | CR ---
CHEST: Portable 10/02/2020 at 1:58 PM CLINICAL HISTORY:Chest pain COMPARISON:CT 2019 FINDINGS: Patient has a permanent cardiac pacer. The heart size, pulmonary vascularity and hilar structures are normal. No infiltrate effusion or pneumothorax is seen. IMPRESSION: No acute cardiopulmonary process.
== END 2020-10-02 14:35 | disposition home or self-care (01) ==
LOC: JP.ED 12:44
DX: R07.89 Other chest pain (principal); I10 Essential (primary) hypertension; Z95.0 Presence of cardiac pacemaker
CPT/HCPCS: 36415; 71045; 71045-26; 80053; 81001; 84484; 85027; 85610; 93005; 99285-25

== ENCOUNTER 2020-10-10 07:03 | Day surgery (SDC) | payer MEDICARE, BC ==
[~2020-10-10 07:03] MED LIST changes: -Acetaminophen 500 MG Tab PO ONE; +Propofol 200 MG/20 ML SDV ONE; +fentaNYL 100 MCG/2 ML SDV ONE
[2020-10-10] MEDS ORDERED: Cyanocobalamin (Vitamin B12) 1,000 MCG/ML SDV IM ONE (07:30)
[2020-10-10] MEDS ORDERED: Lactated Ringers 1,000 ML IV ONE (07:30)
[2020-10-10] MEDS ORDERED: Glycopyrrolate 0.2 MG/ML 2 ML SDV IVPUSH ONE (08:30)
[2020-10-10] MEDS ORDERED: MVI, Adult with Vitamin K 10 ML, Thiamine 200 MG, Chromium/Copper/Mang/Selen/Zn 1 ML in... IV ONE ×4 (08:30)
[2020-10-10 11:16] VITALS: BP 154/79; PULSE 76
--- NOTE | 2020-10-22 15:25 | OR ---
DATE OF PROCEDURE: 10/10/2020 SURGEON: Dhaval Blank MD PREOPERATIVE DIAGNOSIS: Postprandial abdominal pain. POSTOPERATIVE DIAGNOSES: Postprandial abdominal pain most likely related to partial small bowel obstruction with normal upper gastrointestinal endoscopic examination status post Farooq- en-Y gastric bypass. OPERATIVE PROCEDURE: Upper gastrointestinal endoscopy. ANESTHESIA: IV sedation. INDICATIONS FOR PROCEDURE: An 80-year-old male status post previous Farooq-en-Y gastric bypass, has had some bowel obstructions in the past. He presents with some postprandial abdominal pain along with a sense of esophageal spasm and some hiccups. Plan is to proceed with upper GI endoscopy for diagnostic purposes. Potential risks including bleeding and perforation were discussed and the patient wishes to proceed. DETAILS OF PROCEDURE: The patient was taken to the operating room, placed in a left lateral decubitus position. IV sedation was administered after which the upper GI endoscope was passed orally through the length of esophagus and into the stomach pouch and from there through the gastrojejunostomy roughly 20 cm into the Farooq limb. Findings overall were completely normal. There were no areas of significant inflammation, bile reflux, or stricturing. The scope was then withdrawn and the above findings reconfirmed. Based on the patient's history, he is probably having some problems with partial small bowel obstruction. As an empiric strategy, we will try him on some Levsin p.r.n. for esophageal spasm and hiccup symptoms. We will see him back on 10/23/2020. If he is still significantly symptomatic, one might consider an exploratory laparotomy for release of bowel obstruction. Dhaval Blank MD /[id number]
== END 2020-10-10 11:15 | disposition home or self-care (01) ==
LOC: JP.SDS 07:03
PROVIDERS: ATTEND Surgery
DX: K22.4 Dyskinesia of esophagus (principal); G47.33 Obstructive sleep apnea (adult) (pediatric); J45.909 Unspecified asthma, uncomplicated; I10 Essential (primary) hypertension; I48.91 Unspecified atrial fibrillation; K21.9 Gastro-esophageal reflux disease without esophagitis; E11.9 Type 2 diabetes mellitus without complications; Z98.84 Bariatric surgery status
CPT/HCPCS: 43235; J2704; J3010; J3411; J3420; J3490; J7120

== ENCOUNTER 2021-02-07 15:41 | Emergency (ER) | payer MEDICARE, BC ==
[2021-02-07 16:44] VITALS: BP 127/75; PULSE 70
--- NOTE | 2021-02-07 17:56 | CRLCT ---
For Patients: As a result of the Century Cures Act, medical imaging exams and procedure reports are released immediately into your electronic medical record. You may view this report before your referring provider. If you have questions, please contact your health care provider. Indication : Headache and dizziness. Technique : CT of the brain without intravenous contrast. Comparison: CT head 02/17/2019. Findings: No acute blurring of the carlos-white differentiation. There is no intracranial hemorrhage. The ventricles are proportionate to the cerebral sulci. The 4th ventricle is midline. Basal cisterns appear patent. No abnormal extra-axial fluid collection identified. Moderate parenchymal volume loss. There is moderate to severe patchy periventricular hypodensity, favored to represent chronic ischemic microvascular disease. There is no intracranial mass, mass effect or midline shift identified. No depressed calvarial fracture. Impression: 1. No acute intracranial process. 2. 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 Please note that all CT scans at this facility use dose modulation, iterative reconstruction, and/or weight-based dosing when appropriate to reduce radiation dose to as low as reasonably achievable. Dictated by Barry Galvez MD @ 02/07/2021 5:55:30 PM (Electronically Signed)
--- NOTE | 2021-02-07 18:10 | EDM.PDOC ---
ED HPI GENERAL MEDICAL PROBLEM - General Chief Complaint: Neurological Problem Stated Complaint: WEAK, DIZZY Time Seen by Provider: 02/07/21 16:15 Source of Information: Reports: Patient, Family History Limitations: Reports: No Limitations - History of Present Illness INITIAL COMMENTS - FREE TEXT/NARRATIVE: 80-year-old male feels just off, dizzy, intermittent light headache posterior, and started worrying that maybe he was having warnings of stroke. He stayed active, cut firewood, worked in the yard, did most of his normal activity but thought he should come in today just to be checked. He has not had any significant nosebleeds, dark stools, abdominal pain or chest pain. Denies nausea or vomiting. He is fully vaccinated for Covid. Duration: Week(s): (2 weeks of symptoms), Waxing/Waning Location: Reports: Generalized, Other (Headache is posterior) Associated Symptoms: Reports: Confusion, Malaise. Denies: Chest Pain, Fever/Chills, Loss of Appetite, Nausea/Vomiting, Shortness of Breath - Related Data Allergies Allergy/AdvReac Type Severity Reaction Status Date / Time No Known Allergies Allergy Verified 02/07/21 16:19 Home Meds: Home Meds Calcium Citrate/Vitamin D3 [Calcium Citrate - Vit D3 Tab] 1 each PO BID 12/06/12 [History] Ferrous Sulfate [Iron] 325 mg PO DAILY 12/06/12 [History] Vitamin B Complex [B-100 Complex] 100 mg PO DAILY 05/10/14 [History] Cyanocobalamin (Vitamin B-12) [Vitamin B-12] 1,000 mcg SL DAILY 06/05/15 [History] Omeprazole 40 mg PO DAILY #30 cap.sr 02/09/18 [Rx] Cholecalciferol (Vitamin D3) [Vitamin D3] 1,000 unit PO DAILY 02/20/19 [History] FLUoxetine HCl [Prozac] 20 mg PO DAILY 02/20/19 [History] Multivit-Min/FA/Lycopen/Lutein [Centrum Silver Ultra Men's] 1 tab PO DAILY 02/20/19 [History] Magnesium Glycinate [Magnesium Bisglycinate Chelate] 500 gm MC BID 09/12/19 [History] Melatonin 5 mg PO BEDTIME 09/12/19 [History] Warfarin [Coumadin] 5 mg PO DAILY 10/02/20 [History] Ibuprofen 800 mg PO Q8H PRN 10/08/20 [History] Past Medical History HEENT History: Reports: Cataract, Hard of Hearing, Impaired Vision Cardiovascular History: Reports: Aneurysm, Hypertension, Pacemaker Respiratory History: Reports: Asthma, Pneumonia, Recurrent, Sleep Apnea Gastrointestinal History: Reports: Bowel Obstruction, Diverticulosis, Gastritis, GERD, GI Bleed, Hemorrhoids, Hiatal Hernia, Other (See Below) Other Gastrointestinal History: hernia, abdominal aorta aneurysm. Genitourinary History: Reports: Prostate Disorder, Renal Calculus Musculoskeletal History: Reports: Back Pain, Chronic, Fracture, Osteoarthritis Neurological History: Reports: Concussion, Vertigo Other Neuro History: syncope Psychiatric History: Reports: Anxiety, Depression Endocrine/Metabolic History: Reports: Vitamin D Deficiency Hematologic History: Reports: Anemia, B12 Deficiency, Blood Transfusion(s), Iron Deficiency Immunologic History: Reports: None Oncologic (Cancer) History: Reports: None Dermatologic History: Reports: Other (See Below) Other Dermatologic History: rosecea - Infectious Disease History Infectious Disease History: Reports: Chicken Pox, Measles, Mumps Other Infectious Disease History: pt cant remember - Past Surgical History Head Surgeries/Procedures: Reports: None HEENT Surgical History: Reports: Oral Surgery Cardiovascular Surgical History: Reports: Pacer Respiratory Surgical History: Reports: None GI Surgical History: Reports: Appendectomy, Bariatric Procedure, Colonoscopy, EGD, Hernia Repair/Other, Small Bowel Other GI Surgeries/Procedures: hiatal hernia repair Male Surgical History: Reports: Kidney Stone Extraction, TURP-Transurethral Resection of Prostate Other Male Surgeries/Procedures: bladder surgery Neurological Surgical History: Reports: None Social & Family History - Family History Family Medical History: No Pertinent Family History Cardiac: Reports: Hypertension, [place] Musculoskeletal: Reports: Arthritis, Fibromyalgia Psychiatric: Reports: Anxiety, Depression Dermatologic: Reports: Other (See Below) Other Dermatologic Family History: rosacea Oncologic: Reports: Bone, Liver, Metastatic, Skin - Tobacco Use Tobacco Use Status *Q: Never Tobacco User - Caffeine Use Caffeine Use: Reports: Coffee Caffeine Use Comment: 1.5 cups/day - Alcohol Use Days Per Week of Alcohol Use: 7 Number of Drinks Per Day: 3 Total Drinks Per Week: 21 - Recreational Drug Use Recreational Drug Use: No - Living Situation & Occupation Living situation: Reports: Occupation: Retired (lives with , has 4 daughter and 2 sons, 14 grandchildren.) ED FELISHA GENERAL - Review of Systems Review Of Systems: See Below Constitutional: Denies: Fever, Chills HEENT: Reports: No Symptoms Respiratory: Denies: Shortness of Breath Cardiovascular: Denies: Chest Pain Endocrine: Reports: Fatigue GI/Abdominal: Denies: Abdominal Pain, Nausea, Vomiting Skin: Reports: No Symptoms Neurological: Reports: Dizziness, Headache, Weakness Psychiatric: Reports: No Symptoms ED EXAM, GENERAL - Physical Exam Exam: See Below Exam Limited By: No Limitations General Appearance: Alert, No Apparent Distress Eye Exam: Bilateral Eye: Normal Inspection Head: Atraumatic Neck: Supple, Non-Tender Respiratory/Chest: Lungs Clear Cardiovascular: Regular Rate, Rhythm GI/Abdominal: Soft, Non-Tender Extremities: Normal Inspection Neurological: Alert, Oriented, No Motor/Sensory Deficits Psychiatric: Normal Affect, Normal Mood Skin Exam: Warm, Dry Course - Vital Signs Last Recorded V/S: Last Vital Signs Temp 97.9 F 02/07/21 16:13 Pulse 70 02/07/21 16:43 Resp 16 02/07/21 16:13 BP 127/75 02/07/21 16:43 Pulse Ox 96 02/07/21 16:43 - Orders/Labs/Meds Labs: Laboratory Tests 02/07/21 02/07/21 Range/Units 16:55 16:55 WBC 10.1 (4.5-11.0) K/uL RBC 4.46 (4.30-5.90) M/uL Hgb 13.8 (12.0-15.0) g/dL Hct 40.7 (40.0-54.0) % MCV 91 (80-98) fL MCH 31 (27-31) pg MCHC 34 (32-36) % Plt Count 251 (150-400) K/uL Neut % (Auto) 54.0 (36-66) % Lymph % (Auto) 35.1 (24-44) % Delta % (Auto) 8.2 H (2-6) % Eos % (Auto) 2.0 (2-4) % Baso % (Auto) 0.7 (0-1) % Sodium 138 L (140-148) mmol/L Potassium 4.0 (3.6-5.2) mmol/L Chloride 103 (100-108) mmol/L Carbon Dioxide 26 (21-32) mmol/L Anion Gap 13.0 (5.0-14.0) mmol/L BUN 27 H (7-18) mg/dL Creatinine 1.2 (0.8-1.3) mg/dL Est Cr Clr Drug Dosing 41.28 mL/min Estimated GFR (MDRD) 58 L (>60) Glucose 90 (74-106) mg/dL Calcium 8.6 (8.5-10.1) mg/dL Total Bilirubin 0.3 (0.2-1.0) mg/dL AST 22 (15-37) U/L ALT 27 (12-78) U/L Alkaline Phosphatase 78 (46-116) U/L Total Protein 6.3 L (6.4-8.2) g/dL Albumin 3.3 L (3.4-5.0) g/dL Globulin 3.0 (2.3-3.5) g/dL Albumin/Globulin Ratio 1.1 L (1.2-2.2) - Re-Assessments/Exams Free Text/Narrative Re-Assessment/Exam: 02/07/21 18:[address] without contrast was obtained and was normal. CBC and CMP also normal. Patient was reassured, he will return if symptoms are recurring or progressing. Departure - Departure Time of Disposition: 18:23 Disposition: Home, Self-Care 01 Clinical Impression: Dizziness, Tension headache - Discharge Information Instructions: Dizziness Referrals: Gumaro Park MD [Primary Care Provider] - Forms: ED Department Discharge Care Plan Goals: Resume regular activity, stay hydrated, and take any medications as prescribed. Consider rechecking in 2 to 3 days if not improving satisfactorily. Return anytime if worsening or concerns. Sepsis Event Note (ED) - Evaluation Sepsis Screening Result: No Definite Risk - Focused Exam Vital Signs: Vital Signs Temp Pulse Resp BP Pulse Ox 02/07/21 16:43 70 127/75 96 02/07/21 16:13 97.9 F 86 16 120/79 96 02/07/21 16:07 97.9 F 86 16 120/79 96
== END 2021-02-07 18:23 | disposition home or self-care (01) ==
LOC: JP.ED 15:41
DX: R42 Dizziness and giddiness (principal); G44.209 Tension-type headache, unspecified, not intractable; I10 Essential (primary) hypertension; M19.90 Unspecified osteoarthritis, unspecified site; K21.9 Gastro-esophageal reflux disease without esophagitis; Z95.0 Presence of cardiac pacemaker; Z79.01 Long term (current) use of anticoagulants; Z79.899 Other long term (current) drug therapy
CPT/HCPCS: 36415; 70450; 80053; 85025; 99284-25

== ENCOUNTER 2021-08-01 21:59 | Emergency (ER) | payer MEDICARE, BC ==
[2021-08-01 22:18] VITALS: BP 141/88; PULSE 90
== END 2021-08-01 22:58 | disposition home or self-care (01) ==
LOC: JP.ED 21:59
DX: R10.30 Lower abdominal pain, unspecified (principal); I10 Essential (primary) hypertension; K21.9 Gastro-esophageal reflux disease without esophagitis; Z90.49 Acquired absence of other specified parts of digestive tract; Z79.899 Other long term (current) drug therapy
CPT/HCPCS: 99281; 99283

== ENCOUNTER 2022-12-22 17:04 | Emergency (ER) | payer MEDICARE, BC ==
[2022-12-22] MEDS ORDERED: Sodium Chloride 0.9% 10 ML Syringe FLUSH PRN (17:29)
[2022-12-22 17:34] LABS: BASOPHILS PERCENT AUTO 0.9 % (0.1-1.3); EOSINOPHILS ABSOLUTE AUTO 0.23 K/uL (0.00-0.40); HEMATOCRIT 35.9 % (38.4-49.7); HEMOGLOBIN 12.2 g/dL (12.9-16.9); IMMATURE GRAN ABSOLUTE AUTO 0.09 K/uL (0.00-0.23); IMMATURE GRAN PERCENT AUTO 0.8 % (0.0-0.7); LYMPHOCYTES ABSOLUTE AUTO 2.47 K/uL (0.8-3.3); LYMPHOCYTES PERCENT AUTO 21.1 % (11.4-47.7); MEAN CORPUSCULAR HEMOGLOBIN 30.1 pg (31.6-35.5); MEAN CORPUSCULAR VOLUME 88.6 fL (81.4-99.0); MONOCYTES PERCENT AUTO 7.7 % (3.3-12.6); NEUTROPHILS ABSOLUTE AUTO 7.89 K/uL (1.0-7.6); NEUTROPHILS PERCENT AUTO 67.5 % (40.0-78.1); PLATELET COUNT,PLT 282 K/uL (130-375); RED BLOOD CELL COUNT 4.05 M/uL (4.14-5.76); WHITE BLOOD CELL COUNT,WBC 11.7 K/uL (3.2-11.0)
[2022-12-22 17:40] LABS: INR 2.3; PROTHROMBIN TIME 22.2 sec (9.2-10.6)
[2022-12-22 17:44] LABS: A/G RATIO 0.6 (1.2-2.2); ALANINE AMINOTRANSFERASE,ALT 13 U/L (12-78); ALBUMIN 2.5 g/dL (3.4-5.0); ALKALINE PHOSPHATASE 100 U/L (46-116); ANION GAP 10.9 mmol/L (5.0-14.0); ASPARTATE AMNIOTRANSFERASE,AST 27 U/L (15-37); BILIRUBIN TOTAL 0.4 mg/dL (0.2-1.0); BLOOD UREA NITROGEN,BUN 23 mg/dL (7-18); CALCIUM 8.1 mg/dL (8.5-10.1); CARBON DIOXIDE,CO2 26 mmol/L (21-32); CHLORIDE,CL 100 mmol/L (100-108); CREATININE 1.1 mg/dL (0.8-1.3); EST CRCL DRUG DOSING (CG) 43.48 mL/min; ESTIMATED GFR 66 mL/min (>60); GLUCOSE RANDOM 152 mg/dL (74-106); POTASSIUM,K 3.9 mmol/L (3.6-5.2); PROTEIN TOTAL,TP 6.6 g/dL (6.4-8.2); SODIUM,NA 133 mmol/L (140-148)
[2022-12-22 18:48] VITALS: BP 143/77; PULSE 69
== END 2022-12-22 19:00 | disposition home or self-care (01) ==
LOC: JP.ED 17:04
DX: I71.40 Abdominal aortic aneurysm, without rupture, unspecified (principal); K21.9 Gastro-esophageal reflux disease without esophagitis; K91.2 Postsurgical malabsorption, not elsewhere classified; E53.8 Deficiency of other specified B group vitamins; E53.9 Vitamin B deficiency, unspecified; E55.9 Vitamin D deficiency, unspecified; E60 Dietary zinc deficiency; E50.9 Vitamin A deficiency, unspecified; R63.30 Feeding difficulties, unspecified; Z98.84 Bariatric surgery status; J90 Pleural effusion, not elsewhere classified; Z95.0 Presence of cardiac pacemaker
CPT/HCPCS: 36415; 74177; 80053; 85025; 85610; 93005; 99284; J3490; Q9967

== ENCOUNTER 2022-12-25 11:34 | Emergency (ER) | payer MEDICARE, BC ==
[2022-12-25 14:37] LABS: CORONAVIRUS COVID-19 NAA NEGATIVE (NEGATIVE); INFLUENZA A NAA NEGATIVE (NEGATIVE); INFLUENZA B NAA NEGATIVE (NEGATIVE); RESPIRATORY SYNCYTIAL VIR NAA NEGATIVE (NEGATIVE)
[2022-12-25 15:17] VITALS: BP 123/88; PULSE 75
== END 2022-12-25 15:18 | disposition home or self-care (01) ==
LOC: JP.ED 11:34
DX: R53.1 Weakness (principal); R06.02 Shortness of breath; I71.43 Infrarenal abdominal aortic aneurysm, without rupture; J45.909 Unspecified asthma, uncomplicated; K21.9 Gastro-esophageal reflux disease without esophagitis; Z95.0 Presence of cardiac pacemaker; Z20.822 Contact with and (suspected) exposure to COVID-19
CPT/HCPCS: 0241U; 93971; 99285

== ENCOUNTER 2022-12-27 19:30 | Emergency (ER) | payer MEDICARE, BC ==
[2022-12-27 21:10] LABS: BASOPHILS ABSOLUTE AUTO 0.08 K/uL (0.00-0.10); BASOPHILS PERCENT AUTO 0.7 % (0.1-1.3); EOSINOPHILS ABSOLUTE AUTO 0.38 K/uL (0.00-0.40); EOSINOPHILS PERCENT AUTO 3.2 % (0.0-5.4); HEMATOCRIT 34.6 % (38.4-49.7); HEMOGLOBIN 11.9 g/dL (12.9-16.9); IMMATURE GRAN PERCENT AUTO 0.8 % (0.0-0.7); LYMPHOCYTES ABSOLUTE AUTO 2.17 K/uL (0.8-3.3); MEAN CORPUSCULAR HEMOGLOBIN 30.1 pg (31.6-35.5); MEAN CORPUSCULAR HGB CONC 34.4 g/dL (31.6-35.5); MEAN CORPUSCULAR VOLUME 87.4 fL (81.4-99.0); MONOCYTES ABSOLUTE AUTO 1.16 K/uL (0.20-0.90); MONOCYTES PERCENT AUTO 9.6 % (3.3-12.6); NEUTROPHILS ABSOLUTE AUTO 8.17 K/uL (1.0-7.6); NEUTROPHILS PERCENT AUTO 67.7 % (40.0-78.1); PLATELET COUNT,PLT 243 K/uL (130-375); RED BLOOD CELL COUNT 3.96 M/uL (4.14-5.76); WHITE BLOOD CELL COUNT,WBC 12.1 K/uL (3.2-11.0)
[2022-12-27 21:32] LABS: CALCIUM 8.4 mg/dL (8.5-10.1); CREATININE 0.9 mg/dL (0.8-1.3); EST CRCL DRUG DOSING (CG) 53.15 mL/min
[2022-12-27] MEDS ORDERED: cefTRIAXone 2 GM in Sodium Chloride 0.9% 50 ML IV ONE (21:54)
[2022-12-27] MEDS ORDERED: Doxycycline 100 MG Cap PO ONE (21:55)
[2022-12-27 23:27] VITALS: BP 133/83; PULSE 69
== END 2022-12-27 23:21 | disposition home or self-care (01) ==
LOC: JP.ED 19:30
DX: J18.9 Pneumonia, unspecified organism (principal); I10 Essential (primary) hypertension; K21.9 Gastro-esophageal reflux disease without esophagitis; Z95.0 Presence of cardiac pacemaker; Z79.01 Long term (current) use of anticoagulants; Z90.49 Acquired absence of other specified parts of digestive tract; Z79.899 Other long term (current) drug therapy
CPT/HCPCS: 36415; 71045; 80048; 85025; 96365; 99285; A9270; J0696; J3490

== ENCOUNTER 2022-12-29 11:45 | Observation (INO) | payer MEDICARE, BC ==
[2022-12-29] MEDS ORDERED: Sodium Chloride 0.9% 10 ML Syringe FLUSH PRN (12:54)
[2022-12-29] MEDS ORDERED: Magnesium Hydroxide 400 MG/5 ML Susp 30 ML Cup PO PRN (12:54)
[2022-12-29] MEDS ORDERED: Albuterol 0.083% 2.5 MG/3 ML Neb Soln NEB PRN (12:54)
[2022-12-29] MEDS ORDERED: Acetaminophen 325 MG Tab PO PRN (12:54)
[2022-12-29] MEDS ORDERED: oxyCODONE 5 MG Tab PO PRN (12:54)
[2022-12-29] MEDS ORDERED: Sennosides/Docusate Sodium 50-8.6 MG Tab PO PRN (12:54)
[2022-12-29] MEDS ORDERED: HYDROmorphone 0.5 MG/0.5 ML Syringe IVPUSH PRN (12:54)
[2022-12-29] MEDS ORDERED: Ondansetron 4 MG Tab.DIS PO PRN (12:54)
[2022-12-29] MEDS ORDERED: Ondansetron 4 MG/2 ML SDV IV PRN (12:54)
[2022-12-29 13:15] LABS: BASOPHILS ABSOLUTE AUTO 0.06 K/uL (0.00-0.10); BASOPHILS PERCENT AUTO 0.5 % (0.1-1.3); EOSINOPHILS ABSOLUTE AUTO 0.12 K/uL (0.00-0.40); HEMATOCRIT 34.7 % (38.4-49.7); IMMATURE GRAN ABSOLUTE AUTO 0.09 K/uL (0.00-0.23); IMMATURE GRAN PERCENT AUTO 0.8 % (0.0-0.7); LYMPHOCYTES ABSOLUTE AUTO 2.06 K/uL (0.8-3.3); LYMPHOCYTES PERCENT AUTO 17.8 % (11.4-47.7); MEAN CORPUSCULAR HEMOGLOBIN 30.2 pg (31.6-35.5); MEAN CORPUSCULAR HGB CONC 34.6 g/dL (31.6-35.5); MEAN CORPUSCULAR VOLUME 87.4 fL (81.4-99.0); MONOCYTES ABSOLUTE AUTO 1.11 K/uL (0.20-0.90); MONOCYTES PERCENT AUTO 9.6 % (3.3-12.6); NEUTROPHILS ABSOLUTE AUTO 8.16 K/uL (1.0-7.6); NEUTROPHILS PERCENT AUTO 70.3 % (40.0-78.1); PLATELET COUNT,PLT 211 K/uL (130-375); RED BLOOD CELL COUNT 3.97 M/uL (4.14-5.76); WHITE BLOOD CELL COUNT,WBC 11.6 K/uL (3.2-11.0)
[2022-12-29 13:34] LABS: INR 2.1
[2022-12-29 13:49] LABS: A/G RATIO 0.6 (1.2-2.2); ALANINE AMINOTRANSFERASE,ALT 12 U/L (12-78); ALBUMIN 2.5 g/dL (3.4-5.0); ALKALINE PHOSPHATASE 91 U/L (46-116); ANION GAP 11.2 mmol/L (5.0-14.0); ASPARTATE AMNIOTRANSFERASE,AST 23 U/L (15-37); BILIRUBIN TOTAL 0.5 mg/dL (0.2-1.0); BLOOD UREA NITROGEN,BUN 25 mg/dL (7-18); C-REACTIVE PROTEIN 8.97 mg/dL (0.0-0.3); CALCIUM 8.5 mg/dL (8.5-10.1); CARBON DIOXIDE,CO2 26 mmol/L (21-32); CHLORIDE,CL 103 mmol/L (100-108); CREATININE 0.9 mg/dL (0.8-1.3); EST CRCL DRUG DOSING (CG) 51.16 mL/min; ESTIMATED GFR 84 mL/min (>60); GLUCOSE RANDOM 99 mg/dL (74-106); POTASSIUM,K 3.9 mmol/L (3.6-5.2); PROTEIN TOTAL,TP 6.6 g/dL (6.4-8.2); SODIUM,NA 140 mmol/L (140-148)
[2022-12-29] MEDS ORDERED: Iopamidol 612 MG/ML 100 ML Bottle IV ONE (13:55)
[2022-12-29] MEDS ORDERED: Sodium Chloride 0.9% 50 ML IV SCH (14:00)
[2022-12-29] MEDS ORDERED: MVI, Adult with Vitamin K 10 ML, Thiamine 100 MG, Folic Acid 1 MG, Magnesium Sulfate 3 ... IV ONE ×5 (14:00)
[2022-12-29] MEDS ORDERED: Warfarin 2.5 MG Tab PO SCH (14:00)
[2022-12-29] MEDS ORDERED: traZODone 50 MG Tab PO SCH (21:00)
[2022-12-30] MEDS ORDERED: Pantoprazole 40 MG Tab.CR PO SCH (07:30)
[2022-12-30] MEDS ORDERED: Venlafaxine 75 MG Cap.ER PO SCH (09:00)
[2022-12-30] MEDS ORDERED: Cyanocobalamin (Vitamin B12) 1,000 MCG Tab PO SCH (09:00)
[2022-12-30 11:12] VITALS: BP 120/74; PULSE 79
== END 2022-12-30 11:40 | disposition home or self-care (01) ==
LOC: JP.MS 11:45 → INTOOBSV 11:45 → UNDOADMOB 11:45 → JP.MS 12:54
PROVIDERS: ADMIT Internal Medicine; ATTEND Internal Medicine
DX: I26.99 Other pulmonary embolism without acute cor pulmonale (principal); R53.1 Weakness; R63.0 Anorexia; I82.4Z1 Acute embolism and thrombosis of unspecified deep veins of right distal lower extremity; I71.43 Infrarenal abdominal aortic aneurysm, without rupture; I10 Essential (primary) hypertension; J45.909 Unspecified asthma, uncomplicated; K21.9 Gastro-esophageal reflux disease without esophagitis; M54.9 Dorsalgia, unspecified; G89.29 Other chronic pain; F41.9 Anxiety disorder, unspecified; F32.A Depression, unspecified; Z20.822 Contact with and (suspected) exposure to COVID-19; Z95.0 Presence of cardiac pacemaker; Z79.899 Other long term (current) drug therapy; Z79.01 Long term (current) use of anticoagulants; Z98.84 Bariatric surgery status
CPT/HCPCS: 36415; 71260; 71260-26; 80053; 84145; 84443; 85025; 85610; 86140; 96365; 96366; 97161-GP; 99222; 99239; A9270-GY; G0378; J3411; J3475; J3490; J7030; Q9967; U0002

== ENCOUNTER 2023-01-04 15:09 | Emergency (ER) | payer MEDICARE, BC ==
[2023-01-04 15:35] VITALS: BP 119/66; PULSE 81
[2023-01-04 16:02] LABS: BASE EXCESS VENOUS 1.9 mm/L; BICARBONATE,VENOUS 25.5 mmol/L; CARBOXYHEMOGLOBIN 2.2 % (0.0-1.6); METHEMOGLOBIN 1.1 %; O2 SATURATION VENOUS 72.2; OXYHEMOGLOBIN 69.8 %; PH,VENOUS 7.441 (7.350-7.450); PO2 VENOUS 41.6 mm/Hg; TOTAL HEMOGLOBIN 11.8 g/dL (13.5-18.0)
[2023-01-04 16:03] LABS: BASOPHILS PERCENT AUTO 0.6 % (0.1-1.3); EOSINOPHILS ABSOLUTE AUTO 0.09 K/uL (0.00-0.40); EOSINOPHILS PERCENT AUTO 0.6 % (0.0-5.4); HEMATOCRIT 34.1 % (38.4-49.7); HEMOGLOBIN 11.5 g/dL (12.9-16.9); IMMATURE GRAN ABSOLUTE AUTO 0.15 K/uL (0.00-0.23); IMMATURE GRAN PERCENT AUTO 0.9 % (0.0-0.7); LYMPHOCYTES ABSOLUTE AUTO 2.47 K/uL (0.8-3.3); LYMPHOCYTES PERCENT AUTO 15.5 % (11.4-47.7); MEAN CORPUSCULAR HEMOGLOBIN 29.9 pg (31.6-35.5); MEAN CORPUSCULAR HGB CONC 33.7 g/dL (31.6-35.5); MEAN CORPUSCULAR VOLUME 88.8 fL (81.4-99.0); MONOCYTES ABSOLUTE AUTO 1.45 K/uL (0.20-0.90); MONOCYTES PERCENT AUTO 9.1 % (3.3-12.6); NEUTROPHILS PERCENT AUTO 73.3 % (40.0-78.1); PLATELET COUNT,PLT 180 K/uL (130-375); RED BLOOD CELL COUNT 3.84 M/uL (4.14-5.76)
[2023-01-04 16:21] LABS: CALCIUM 8.6 mg/dL (8.5-10.1); CREATININE 1.1 mg/dL (0.8-1.3); EST CRCL DRUG DOSING (CG) 41.86 mL/min; PROTHROMBIN TIME 60.6 sec (9.2-10.6)
[2023-01-04 16:23] LABS: INR 6.7
[2023-01-04 16:55] LABS: CORONAVIRUS COVID-19 NAA NEGATIVE (NEGATIVE); INFLUENZA A NAA NEGATIVE (NEGATIVE); INFLUENZA B NAA NEGATIVE (NEGATIVE); RESPIRATORY SYNCYTIAL VIR NAA NEGATIVE (NEGATIVE)
== END 2023-01-04 17:51 | disposition home or self-care (01) ==
LOC: JP.ED 15:09
DX: J18.9 Pneumonia, unspecified organism (principal); I71.40 Abdominal aortic aneurysm, without rupture, unspecified; J90 Pleural effusion, not elsewhere classified; I26.99 Other pulmonary embolism without acute cor pulmonale; R91.8 Other nonspecific abnormal finding of lung field; J45.909 Unspecified asthma, uncomplicated; I10 Essential (primary) hypertension; K21.9 Gastro-esophageal reflux disease without esophagitis; Z79.899 Other long term (current) drug therapy; Z79.01 Long term (current) use of anticoagulants; Z95.0 Presence of cardiac pacemaker; Z20.822 Contact with and (suspected) exposure to COVID-19
CPT/HCPCS: 0241U; 36415; 71045; 71045-26; 80048; 82803; 84145; 85025; 85610; 93005; 93010; 99284; 99285